=== PATIENT | female | born 1960 | race Caucasian/White ===

== ENCOUNTER 2021-04-13 08:05 | Outpatient (REF) | payer OTHER, SELFPAY ==
[2021-04-13 11:34] LABS: MANUAL DIFF FLAG NO
[2021-04-13 12:03] LABS: Basophils Percent Auto 0.7 % (0-2); Eosinophils Absolute Auto 0.2 X10*3/uL (0.0-0.4); Eosinophils Percent Auto 4.3 % (0-4); Hematocrit 40.8 % (37-47); Hemoglobin 12.9 g/dl (12.0-16.0); Imm Gran Abs Auto 0.01 X10*3/uL (0.00-0.03); Imm Gran Pct Auto 0.2 % (0.0-0.4); Lymphocytes Absolute Auto 1.7 X10*3/uL (1.2-4.9); Lymphocytes Percent Auto 39.1 % (20-40); Mean Corpuscular HGB Conc 31.6 g/dl (31.0-35.0); Mean Corpuscular Hemoglobin 30.1 pg (27.0-33.0); Mean Corpuscular Volume 95.1 fL (80-98); Mean Platelet Volume 9.9 fL (9.4-12.3); Monocytes Absolute Auto 0.4 X10*3/uL (0.1-1.2); Monocytes Percent Auto 9.5 % (2-11); Neutrophils Percent Auto 46.2 % (45-73); Platelet Count 193 X10*3/uL (160-400); Red Blood Count 4.29 X10*6/uL (4.20-5.50); Red Cell Distribution Width 12.8 % (11.0-16.0); White Blood Count 4.2 X10*3/uL (4.8-10.8)
[2021-04-13 12:21] LABS: Free T4 (Free Thyroxine) 0.81 ng/dL (0.71-1.85); Thyroid Stimulating Hormone 3.32 uIU/mL (0.32-4.0)
[2021-04-13 12:36] LABS: Alanine Aminotransferase 9 U/L (0-31); Albumin Level 3.7 g/dL (3.5-5.0); Alkaline Phosphatase 77 U/L (39-117); Anion Gap 10 (12-20); Aspartate Amino Transferase 14 U/L (5-31); Bilirubin Total 0.6 mg/dL (0.0-1.0); Blood Urea Nitrogen 23 mg/dL (9-16); Calcium 8.9 mg/dL (8.4-10.2); Carbon Dioxide 27 mmol/L (22-29); Chloride 109 mmol/L (96-108); Cholesterol 188 mg/dL; Estimated Glomerular Filt Rate > 60; Glucose Fasting 80 mg/dL (60-99); HDL Cholesterol 67 mg/dL; LDL Cholesterol Calculated 111 mg/dl; Potassium 4.4 mmol/L (3.3-5.1); Sodium 142 mmol/L (135-145); Total Protein 6.1 g/dL (6.5-8.0); Triglycerides 51 mg/dL
== END 2021-04-13 08:06 | disposition home or self-care (01) ==
LOC: HO.MANLDS 08:05
PROVIDERS: PCP Internal Medicine; Visit Provider Physician Assistant
DX: Z00.00 Encounter for general adult medical examination without abnormal findings (principal); Z13.6 Encounter for screening for cardiovascular disorders
CPT/HCPCS: 36415; 80053; 80061; 84439; 84443; 85025

== ENCOUNTER → 2025-05-30 07:45 | Outpatient (BNV) | payer MEDICARE, OTHER, SELFPAY | PROVIDERS: PCP Internal Medicine; Visit Provider Specialist | DX: M25.511 Pain in right shoulder (principal) | CPT/HCPCS: 73221 ==

== ENCOUNTER 2025-05-30 07:55 | Outpatient (REF) | payer MEDICARE, OTHER, SELFPAY ==
--- NOTE | ~2025-05-30 | MR_ITS ---
CLINICAL HISTORY: RIGHT SHOULDER INSTABILITY MR right shoulder without gadolinium Comparison: None provided Findings: No acute fractures. No pathologic bone lesions. AC joint degenerative/arthritic changes. Type II acromion. No joint effusion. The supraspinatus, infraspinatus, subscapularis, and teres minor tendons are intact. No tears of the long head of biceps tendon. No tears of the glenoid labrum. IMPRESSION: AC joint degenerative changes. No acute findings. This document has been electronically signed by: Rajendra Vásquez MD on 05/30/2025 08:55:20
--- OUTSIDE RECORDS SUMMARY | 2025-05-30 07:58 | XMS_ITS | Encounter Summary ---
Author Organization [facility] Address [facility] [employer] [address] [address] Phone Care Team Providers Care Brine Room Laborer Name Role Phone Darnell Cheney DO Primary Care Provider [phone] Darnell Cheney DO Unavailable Darnell Cheney DO Unavailable Mehul Keita MD Unavailable [phone] Camila Garcia MD Unavailable [phone] Darnell Cheney DO Unavailable Darnell Cheney Michel DO Unavailable Reason for Referral * MRI/CAT Scan - Closed Specialty Diagnoses / Procedures Referred By Johnathon [email or web address] Referred To Contact Radiology Diagnoses Other diseases of pharynx Procedures MRI Neck Darnell Cheney DO Phone: tel: fax: [email or web address] Referral ID Status Reason Start Date Expiration Date Visits Re quested Visits Authorized [id number] Closed 01/05/2021 02/06/2021 1 1 Encounter Details Date Type Department Care Team ([facility] st Contact Info) Description 12/16/2020 Transcribe Orders Virtual Department [address] [place] [address] Darnell Cheney DO [address] [facility] [place] [address] [phone] (work) [email or web address] Other diseases of pharynx (Primary Dx) Social History Tobacco Use Types Packs/Day Years Used Date Smoking Tobacco: Former Cigarettes Q uit: 2011 Smokeless Tobacco: Never Alcohol Use Standard Drinks/Week Comments Yes 0 (1 standard drink = 0.6 oz pur e alcohol) socially Comments No Sex and Gender Information Value Date Recorded Sex Assigned at Female 06/05/2020 2:08 PM EDT Legal Sex Female 12:47 PM EDT Gender Identity Female 06/05/2020 2:08 PM EDT Sexual Orientation Straight 06/05/2020 2: 08 PM EDT documented as of this encounter Plan of Treatment Not on file documented as of this encounter Results * MRI NECK WITH AND WITHOUT CONTRAST (01/05/2021 12:15 PM EST) Anatomical Region Laterality Modality Neck Magnetic Resonan ce 01/05/2021 12:0 0 PM EST Impressions 01/05/2021 12:29 PM EST No evidence of suspicious cervical masses. Borderline-minimally enlarged right submandibular lymph node is very likely reactive. Clinical follow-up recommended. Narrative 01/05/2021 12:29 PM EST HISTORY: Dysphagia, reflux esophagitis, former cigarette smoker, status-post tonsillectomy, status-post EGD, status-post Satish-en-Y gastrojejunostomy. COMPARISON: CT neck 12/04/2020. TECHNIQUE: MRI of neck performed with and without contrast on a 1.5 Alysa magnet. FINDINGS: Soft tissues: No evidence of parapharyngeal masses. Prevertebral soft tissues appear normal. Epiglottis appears normal. Soft tissues in the region of the glottis appear normal. Subglottic soft tissues appear normal. No evidence of abnormal enhancement. No evidence of focal fluid collections. Lymph nodes: Borderline-minimally enlarged right submandibular lymph node does not appear significant changed from 12/04/2020. No other evidence of measurable lymphadenopathy. Salivary: Parotid and submandibular glands appear normal. Thyroid: No abnormalities demonstrated. Bones: No suspicious marrow signal abnormalities. Base of brain, paranasal sinuses and mastoid air cells: Traces of fluid within bilateral mastoid air cells. Minimal mucosal thickening in bilateral ethmoid air cells. Procedure Note Benedict Elizabeth MD - 01/05/2021 HISTORY: Dysphagia, reflux esophagitis, former cigarette smoker,status-post tonsillectomy, status-post EGD, status-post [id number]. COMPARISON: CT neck 12/04/2020. TECHNIQUE: MRI of neck performed with and without contrast on a 1.5 Teslamagnet. FINDINGS: Soft tissues: No evidence of parapharyngeal masses. Prevertebral softtissues appear normal. Epiglottis appears normal. Soft tissues in theregion of the glottis appear normal. Subglottic soft tissues appearnormal. No evidence of abnormal enhancement. No evidence of focal fluidcollections. Lymph nodes: Borderline-minimally enlarged right submandibular lymph nodedoes not appear significant changed from 12/04/2020. No other evidence ofmeasurable lymphadenopathy. Salivary: Parotid and submandibular glands appear normal. Thyroid: No abnormalities demonstrated. Bones: No suspicious marrow signal abnormalities. Base of brain, paranasal sinuses and mastoid air cells: Traces of fluidwithin bilateral mastoid air cells. Minimal mucosal thickening inbilateral ethmoid air cells. IMPRESSION: No evidence of suspicious cervical masses. Borderline-minimally enlargedright submandibular lymph node is very likely reactive. Clinical follow-uprecommended. Darnell Cheney DO [facility] [place]ECK Final Result documented in this encounter Visit Diagnoses Diagnosis Other diseases of pharynx- Primary Other diseases of pharynx documented in this encounter Additional Health Concerns Infection Onset Date Last Indicated Resolved Time CoV-Risk 03/28/2022 03/28/2022 04/08/2022 1:24 AM EDT documented as of this encounter Care Teams Brine Room Laborer Relationship Specialty Start Date End Date Darnell Cheney DO [email or web address] PCP - General Internal Medicine 06/04/20 Darnell Cheney DO 06/04/20 Darnell Cheney DO Historical LMR Provider 08/24/17 Mehul Keita MD [address] [place] [address] Historical LMR Provider 08/24/17 Camila Garcia MD [address] [place] [address] [facility], [place] [address] Historical LMR Provider 08/24/17 Darnell Cheney DO [address] [place] [address] Insurance Assigned Provider 03/11/20 09/16/23 Darnell Cheney DO [address] [place] [address] Insurance Assigned Provider 02/10/24 documented as of this encounter Additional Source Comments The information contained in this document represents components of the legal health record. It is not the complete legal health record.[facility]
--- OUTSIDE RECORDS SUMMARY | 2025-05-30 07:58 | XMS_ITS | Data Portability ---
Author Organization [facility], Telehealth Patient Home Address [address] [place] [address] Assessment Encounter Date Assessment Date Assessment LastModified by Organization Details LastModified Time 07/02/2024 07/02/2024 Patient agreed and verbally consents to this audio and video Telehealth appt via a secure platform [email or web address] Not available 07/02/2024 14:14:12 03/04/2025 03/04/2025 [id number] [place] [id number] ([facility]) : MDM LOW MUST MEET 2 OF 3 ELEMENTS: PROBLEMS, DATA OR RISK ELEMENT 1: PROBLEMS ADDRESSED (LOW): 2 OR MORE SELF-LIMITED OR MINOR PROBLEMS OR 1 STABLE CHRONIC ILLNESS OR 1 ACUTE UNCOMPLICATED ILLNESS OR INJURY ELEMENT 2: DATA TO BE REVISED AND ANALYZED (LOW) MUST MEET 1 OF 2 CATEGORIES: CATEGORY 1. REVIEW OF PRIOR EXTERNAL NOTES/RESULTS, ORDERING OF TEST(S) CATEGORY 2. ASSESSMENT REQUIRING INDEPENDENT HISTORIAN(S) INCLUDE WHO THE HISTORIAN IS AND RELATION TO PT AND WHY PT IS UNABLE TO GIVE COMPLETE HISTORY ELEMENT 3: RISK (LOW) RISK OF COMPLICATIONS AND/OR MORBIDITY OR MORTALITY OF PATIENT MANAGEMENT PROVIDER MUST THOROUGHLY DOCUMENT ALL OF THE ELEMENTS COVERED [email or web address] Not available 03/04/2025 11:26:46 Plan of Treatment Reminders Order Date Submit Date Provider Last Modified By Organization Details Last Modified Time Details Appointments ANNUAL EXAM 2025 01:30P OSWALDO QUINTERO Not available Not available Not available Lab CMP, serum or plasma 2024 025 [facility], [address] [place] [address], [place], [address], 03/17/2025 13:39:48 CBC w/ auto diff 2024 025 [facility], [address] [facility], [place], [address], 03/17/2025 13:39:48 lipid panel, blood 2024 025 [facility], [address] [facility], [place], [address], 03/17/2025 13:39:48 iron + TIBC + ferritin, serum 2023 024 [facility], [place], [address], 01/15/2024 11:31:55 vitamin B12 + folate, serum or blood 2023 024 [facility], [place], [address], 01/15/2024 11:31:56 vitamin D, 25-hydrox y, total, serum 2023 024 [facility], [place], [address], 01/15/2024 11:31:56 TSH + free T4, serum 2023 024 [facility], [place], [address], 01/16/2024 14:01:05 thyroid peroxidas e (tpo) Ab, serum 2023 024 [facility], [place], [address], 01/15/2024 11:31:56 T3, free, serum or plasma 2023 024 [facility], [place], [address], 01/15/2024 11:31:55 ESR (erythroc yte sedimenta tion rate), blood 2023 024 [facility], [place], [address], 01/15/2024 11:31:55 C reactive protein, QN, serum or plasma 2023 024 [facility], [place], [address], 01/15/2024 11:31:56 PTH (parathyr oid hormone), intact + calcium, serum or plasma 2023 024 [facility], [place], [address], 01/16/2024 14:00:10 CBC w/ auto diff 2023 024 [facility], [place], [address], 01/16/2024 13:59:21 sjogren antibody panel (ssa, ssb, ro, la), serum 2023 024 [facility], [place], [address], 01/15/2024 11:31:56 SUAD (antinucl ear antibodie s) screen, serum 2023 024 [facility], [place], [address], 01/17/2024 15:01:52 Referral orthopedi c surgeon referral 2023 024 donovan Wiley MD, [address], [facility] [address], [place], [address], 01/23/2024 08:10:12 Procedures None recorded. Surgeries None recorded. Imaging MRI, brain, w/wo contrast - pt has a family history of glioblast ze, having acute onset constant headache in the frontal and temporal lobe areas with acute onset visual disturban ce, pain does not improve with OTC therapies , having floaters bilateral ly 2023 024 [email or web address] [facility], [address], [facility] [address], [place], [address], 07/09/2024 08:28:54 Medication Orders Bactrim DS 800 mg-160 mg tablet 2023 025 [id number], [address] [place], [place], [id number], 03/17/2025 13:35:22 Patient TargetsNo targets recorded. Patient InstructionsNo instructions recorded. Reason for Referral Orthopedic Surgeon Referral for Bilateral wrist pain bilateral wrist pain, hx of carpal tunnel, failed surgery on the left wrist Referring Physician: Amee Reaves, Internal Medicine, Encounter Date: 01/15/2024 Results Created Date Observation Date Name Description Value Unit Range Abnormal Flag Note LastModifiedBy Organization Detail LastModifiedTime 07/14/20 24 07/12/2024 MRI, brain , w/wo contr ast No observ ation record ed. [email or web address] [facility] [address] [facility] [address], [place], [address], 07/15/2024 12:02:31 09/16/20 24 09/16/2024 MAMMO , scree malorie, digit al, bilat eral No observ ation record ed. [email or web address] - Callback Orders Only [address] [place], [address], 09/16/2024 15:24:49 03/03/20 25 03/03/2025 XR, shoul opal, 2 or more view No observ ation record ed. [email or web address] [facility] [address] [place], [address], 03/04/2025 22:13:52 Result Notes None recorded. Problems Name Problem SNOMED Code Status Onset Date Resolution Date Notes Provider Name and Address Organization Details Recorded Time Anxiety 24042924 Active 2017 Not Available [facility] 1 12:59:04 Depressi ve disorder 92997218 Active 2017 Not Available [facility] 1 12:59:04 Chronic cough 67502686 Active 2017 Not Available [facility] 1 12:59:03 Gastroes ophageal reflux disease 579071221 Active 2017 Not Available [facility] 1 12:59:03 Morbid obesity 552234827 Active 2017 Not Available [facility] 1 12:59:03 Hypergly cemia 53470896 Active 2017 Not Available [facility] 1 12:59:04 Migraine 81983348 Active 2017 Not Available [facility] 1 12:59:03 Polycyst ic ovaries Active 2017 Not Available [facility] 1 12:59:03 Polyp of colon 57356543 Active 2017 Not Available [facility] 1 12:59:04 Pneumoni a 327680197 Active 2017 Not Available [facility] 1 12:59:04 Obstruct liset sleep apnea syndrome 00896457 Completed 201701/22/2021 OSWALDO HENRIQUEZ [address] [place] [address], [phone] 1 09:36:22 History of endometr ial ablation 53204289634 9107 Active 2017 Not Available [facility] 1 12:59:03 Menopaus e Active 2017 Not Available [facility] 1 12:59:03 Hemorrho ids 59277940 Active 2017 Not Available [facility] 1 12:59:03 Eczema 02617974 Active 2017 Not Available [facility] 1 12:59:04 Rotator cuff impingem ent syndrome 221854128 Active 2019 Not Available [facility] 1 12:59:04 Plantar fasciiti s of left foot 36074448098 757999 Active 2021 OSWALDO HENRIQUEZ [address] [place], [address], [facility] 2 16:57:59 Acute pharyngi tis 624169529 Active 2022 OSWALDO HENRIQUEZ [address] [place], [address], [facility] 3 12:32:18 COVID-19 711281984 Active 2022 OSWALDO HENRIQUEZ [address] [place], [address], [facility] 3 10:17:25 Pain of right wrist 72757824980 9100 Active 2023 OSWALDO HENRIQUEZ [address] [place], [address], [facility] 4 11:25:16 Bilatera l wrist pain 84961527027 976176 Active 2023 OSWALDO HENRIQUEZ [address] [place], [address], [facility] 4 11:25:49 Loss of hair 289688539 Active 2023 OSWALDO HENRIQUEZ [address] [place], [address], [facility] 4 11:27:36 Alopecia areata 60136323 Active 2023 OSWALDO HENRIQUEZ [address] [place], [address], [facility] 4 15:40:32 Visual disturba nce 90467095 Active 2023 OSWALDO HENRIQUEZ [address] [place], [address], [facility] 4 14:11:13 Visual disturba nce 58269190 Active 2023 OSWALDO HENRIQUEZ [address] [place], [address], [facility] Internal [facility] 4 14:12:02 Abscess 256224064 Active 2023 OSWALDO HENRIQUEZ [address] [place] [address], [address], [facility] Internal [facility] 4 14:14:36 Candidia sis of vagina 00748619 Active 2024 OSWALDO HENRIQUEZ [address] [place] [address], [address], [facility] Internal [facility] 5 10:56:57 Pain of right shoulder joint 42867114734 206058 Active 2024 Darnell Cheney DO [address] [place] [address], [address], [facility] 5 18:48:58 Tendinit is of right rotator cuff 23368321517 335345 Active 2024 Darnell Cheney DO [address] [place] [address], [address], [facility] 5 11:25:20 Instabil ity of right shoulder joint 350342078 Active 2024 Darnell Cheney DO [address] [place] [address], [address], [facility] 5 21:02:47 Problem Notes None recorded. Procedures Surgical History Date Name Laterality Status Provider Name and Address Organization Details Recorded Time 025 Corticosteroid Injection completed Darnell Cheney DO [address] [place] [address], [address], [facility] 03/04/2025 11:24:58 019 Corticosteroid Injection completed Darnell Cheney DO [address] [place] [address], [address], [facility] 09/03/2019 14:35:23 014 Gastric Bypass completed Heena Cheney [facility] 07/31/2019 09:42:28 014 Hernia Repair completed [facility] 07/31/2019 09:42:28 992 Tubal Ligation completed [facility] 07/31/2019 09:42:28 Colonoscopy completed Heena [facility] 07/31/2019 09:42:28 Other completed Heena escalera [facility] 07/31/2019 09:42:28 Imaging Results None recorded. Procedure Notes None recorded. Medical Equipment None Reported. Allergies No known drug allergies Medications Name Sig Start Date Stop Date Status Note LastModified by Organization Details LastModified Time amoxicillin 500 mg capsule TAKE ONE CAPSULE BY MOUTH EVERY 8 HOURS FOR 7 DAYS 01/14 completed Not Available Not Available Not Available prednisone 10 mg tablet 4 tabs x 2 days3 tabs x 2 days2 tabs x 2 days1 tabs x 2 days 01/10 completed Not Available Not Available Not Available trazodone 50 mg tablet TAKE 1 TABLET AT BEDTIME active Not Available Not Available No t Available azithromyci n 250 mg tablet TAKE 2 TABLETS (500 MG) BY ORAL ROUTE ONCE DAILY FOR 1 DAY THEN 1 TABLET (250 MG) BY ORAL ROUTE ONCE DAILY FOR 4 DAYS 01/14 completed Not Available Not Available Not Available ibuprofen 800 mg tablet Take 1 tablet 3 times a day by oral route for 10 days. active prn Not Available Not Available No t Available fluconazole 150 mg tablet TAKE 1 TABLET BY MOUTH EVERY DAY FOR 3 DAYS DIRECTED 03/17 completed Not Available Not Available Not Available valacyclovi r 1 gram tablet TAKE 1 TABLET BY MOUTH THREE TIMES DAILY FOR 7 DAYS 03/17 completed Not Available Not Available Not Available Anucort-HC 25 mg suppository Insert 1 supposito ry twice a day by rectal route for 14 days. 07/31 completed Not Available Not Available Not Available meclizine 12.5 mg tablet TAKE 1 TABLET BY MOUTH THREE TIMES DAILY FOR 10 DAYS 10/11 completed Not Available Not Available Not Available lidocaine HCl 2 % mucosal jelly 07/31 completed Not Available Not Available Not Available sulfamethox azole 800 mg-trimetho prim 160 mg tablet TAKE 1 TABLET BY MOUTH EVERY 12 HOURS FOR 7 DAYS DIRECTED 03/17 completed Not Available Not Available Not Available omeprazole 40 mg capsule,del ayed release TAKE 1 CAPSULE DAILY active Not Available Not Available No t Available meloxicam 7.5 mg tablet TAKE 1 TABLET BY MOUTH TWICE DAILY 01/22 completed Not Available Not Available Not Available hydrocortis one 2.5 % topical cream with perineal applicator APPLY A THIN LAYER TO THE AFFECTED AREA(S) BY TOPICAL ROUTE 2-4 TIMESDAIL Y 07/31 completed Not Available Not Available Not Available famotidine 20 mg tablet TAKE 1 TABLET DAILY 11/25 completed Not Available Not Available Not Available paroxetine 20 mg tablet TAKE 1 TABLET DAILY active Not Available Not Available No t Available erythromyci n 5 mg/gram (0.5 %) eye ointment APPLY 1 APPLICATI ON TO THE AFFECTED EYE FOUR TIMES DAILY FOR 7 DAYS 01/14 completed Not Available Not Available Not Available triamcinolo ne acetonide 0.1 % topical ointment active Not Available Not Available Not Available omeprazole 20 mg capsule,del ayed release TK 1 C PO QD 30 MIN B PEYTON 11/25 completed Not Available Not Available Not Available diclofenac sodium 75 mg tablet,dot yed release TAKE 1 TABLET BY MOUTH TWICE DAILY WITH MEALS 01/14 completed Not Available Not Available Not Available ranitidine 150 mg capsule TAKE 1 CAPSULE DAILY 05/20 completed Not Available Not Available Not Available lorazepam 1 mg tablet 07/17 completed Not Available Not Available Not Available ondansetron 4 mg disintegrat ing tablet 07/17 completed Not Available Not Available Not Available betamethaso ne dipropionat e 0.05 % lotion APPLY TO THE AFFECTED AREAS ON THE SCALP EVERY OTHER DAY FOR FLARES AND ITCHING. active Not Available Not Available No t Available doxycycline hyclate 100 mg tablet TAKE 1 TABLET BY MOUTH TWICE DAILY WITH FOOD 03/17 completed Not Available Not Available Not Available amoxicillin 875 mg-potassiu m clavulanate 125 mg tablet TAKE 1 TABLET BY MOUTH EVERY 12 HOURS FOR 7 DAYS 10/11 completed Not Available Not Available Not Available oxycodone 5 mg tablet TAKE 1 TABLET BY MOUTH EVERY 6 HOURS NEEDED FOR PAIN 03/17 completed Not Available Not Available Not Available pregabalin 75 mg capsule Take 1 capsule twice a day by oral route for 30 days. 05/20 completed Not Available Not Available Not Available chlorhexidi ne gluconate 0.12 % mouthwash 07/17 completed Not Available Not Available Not Available Pepcid 1 QD OTC 01/10 completed Not Available Not Available Not Available iron active OTC Not Available Not Availa ble Not Available Vitamin B12 qd active Not Available Not A vailable Not Available Afluria Qd (36 mos up)(PF)60 mcg (15 mcg x4)/0.5 mL IM syringe ADM 0.5ML IM UTD 11/25 completed Not Available Not Available Not Available Flowflex COVID-19 Antigen Home Test kit 01/14 completed Not Available Not Available Not Available Paxlovid 300 mg (150 mg x 2)-100 mg tablets in a dose pack TAKE 3 TABLETS TWICE A DAY BY ORAL ROUTE FOR 5 DAYS 01/14 completed Not Available Not Available Not Available Vitals Date Recorded Body height Heart rate Oxygen saturation Oxygen saturation in Arterial blood by Pulse oximetry Systolic And Diastolic Provider Name and Address Organization Details Last Updated DateTime 4 165.1 cm 58 /min 98 % 98 % 110/60 mm[Hg] Vandana Mustafa [facility] 4 11:17:57 Date Recorded Body height Body mass index (BMI) Body weight Heart rate Respiratory rate Oxygen saturation Oxygen saturation in Arterial blood by Pulse oximetry Systolic And Diastolic Provider Name and Address Organization Details Last Updated DateTime 4 165.1 cm 34.8 kg/m2 31176.8 1 g 58 /min 16 /min 98 % 98 % 138/76 mm[Hg] Jonathan Meneses [facility] 4 09:58:52 Date Recorded Body height Body mass index (BMI) Body weight Heart rate Oxygen saturation Oxygen saturation in Arterial blood by Pulse oximetry Systolic And Diastolic Provider Name and Address Organization Details Last Updated DateTime 5 165.1 cm 32.6 kg/m2 99527.1 g 60 /min 97 % 97 % 110/60 mm[Hg] Vandana Mustafa MA [facility] 5 13:33:44 Social History Question Answer Notes LastModified by Organizat ion Details LastModified Time Tobacco Smoking Status Current Every Day Smoker Vandana theodore [facility] 03/17/2025 13:31:09 What Was The Date Of Your Most Recent Tobacco Screening? 03/17/2025 [email or web address] Information not available 03/17/2025 Sex: Unknown Functional Status Question Answer Note LastModified by Organization D etails LastModified Time Do you or have you ever used any other forms of tobacco or nicotine? No [email or web address] Information not available 01/15/2024 Mental Status None recorded. Family History Relationship Description Onset Age of this Age Resolved Age Notes LastModified by Organization Details LastModified Time Son Harmful pattern of use of alcohol 22 [email or web address] Not available 2018 09:42:56 Son Harmful pattern of use of alcohol 20 [email or web address] Not available 2018 09:42:56 Son Substance abuse 16 [email or web address] Not available 2018 09:42:56 Son Substance abuse 16 [email or web address] Not available 2018 09:42:56 Mother Hypertensive disorder 80 [email or web address] Not available 2018 09:42:56 Mother Arthritis 75 [email or web address] Not available 07/31/2019 09:42:56 Maternal Grandfather Chronic obstructive pulmonary disease 75 [email or web address] Not available 2018 09:42:56 Sister Migraine 30 [email or web address] Not available 0 07/31/2019 09:42:56 Sister Disorder of thyroid gland [email or web address] Not available 2018 09:42:56 Medical History Condition Response Coronary Artery Disease N Other N Gout N Kidney Stones N Blood Diseases N Breast Cancer N Blood Transfusion N Depression N COPD N Lung Disease N Defects or Inherited Disease N Anxiety Disorder N Muscle, Joint, or Bone Problems N Obesity N Vision or Eye Problems N Arthritis N Polyps N Infertility N Mental Disorder N Cancer N Varicosities N Stroke N Endometriosis N Bladder or Kidney Problems N High Cholesterol N Liver Disease N Headaches N Fibromyalgia N Kidney Disease N Allergies/Hayfever N Heart Problems N Hospitalizations N Thyroid Problems N GI Problems N Skin Problems N Eating Disorder N Anemia N MRSA exposure N Constipation N Mental Illness N Ovarian Cancer N Diabetes N Seizures/Epilepsy N Tuberculosis N Congestive Heart Failure (CHF) N Eczema N Diverticulitis N Abuse/Domestic Violence N Asthma N Reflux/GERD N Hepatitis N Heart Disease N Pulmonary Embolism N Hypertension N Chicken Pox N Autism Spectrum Disorder (ASD) N Osteoporosis N Gynecological History Statement/Question Response Abnormal Pap Y None HPV Vaccine N Current Control Method None Age at Menarche 12 Age at First Child 1988 N Obstetrics History GPAL:G 0 P 0 0 0 0 Immunizations Vaccine Type Date Status Note Provider Nam e and Address Organization Details Recorded Time COVID-19 vaccine, vector-nr, rS-Ad26, PF, 0.5 mL 01/07/2021 completed Not Available [facility] 2 20:00:42 COVID-19 vaccine, vector-nr, rS-Ad26, PF, 0.5 mL 12/17/2020 completed Not Available [facility] 2 20:00:42 Past Encounters Encounter ID Performer Location Encounter Start Date Encounter Closed Date Diagnosis/Indication Diagnosis SNOMED-CT Code Diagnosis ICD10 Code Diagnosis Note [id number] Darnell Cheney [facility] [address] [place] [address] [place] [address] 07/17/2018 13:48:54 07/17/2018 16:27:57 Hemorrhoids 65729787 K64.9 [id number] Darnell Cheney [facility] Internal [address], [place] [address] 07/31/2019 09:39:04 07/31/2019 10:17:36 Reduced libido 1223338 R68.82 will discuss with obgyn Snoring 42392717 R06.83 will discuss with dentist Pain of sh oulder region 10058181 M25.519 IMPINGEMEN T SYNDROME Impingemen t syndrome of shoulder region 894796915 M75.42 [id number] Darnell Cheney [facility] [address] [place] [address], [place] [address] 08/07/2019 13:40:56 08/07/2019 14:24:23 Full thickness rotator cuff tear 654394758 M75.122 severe pain and debility for the last 2 mo now affecting her ADL's severity of pain precludes any ability to do Phys Therpay [id number] Darnell Cheney [facility] Internal [address], [place] [address] 09/03/2019 14:09:12 09/03/2019 14:48:44 Bursitis of left shoulder 8240014910 32326 M75.52 cortisone injn [facility] [id number] Darnell Cheney [facility] Medicine [address] [facility] [facility] [place] [address] 05/20/2020 11:57:37 05/20/2020 12:30:15 Sensation of foreign body in throat 8111148949 47832 R09.89 will send to gastro specialist to work up further was not able to appreciate that much on exam of the throat Acid reflux 114541794 K2 1.9 long hx of acid reflux, could be famotidine does not work as well for her as ranitidine did [id number] Darnell Cheney [facility] [address] [facility] [address] 10/21/2020 08:56:05 10/21/2020 15:46:23 Gastro-esophageal reflux disease with esophagitis 603845897 K21.00 if unhelpful we will have to set her up with ENT for a laryngosoc py but this is sounding like laryngeal reflux Rotator cu ff impingement syndrome 079685764 M75.102 [id number] Darnell Cheney [facility] Internal [facility] [address] [facility] [employer] TherapydiaCOLUMB[facility] UNIV[facility] [place] [address] 11/25/2020 13:22:48 11/25/2020 14:04:48 Dysphonia 32017079 R49.9 given the persistanc e of her symptoms we must explore further i will have ENT and ct scan of neck ordered [id number] Darnell Cheney [facility] Medicine [address] [facility] [address] 01/22/2021 09:11:05 01/22/2021 09:59:16 Screening colonoscopy 933640715 Z12.11 sent in referral Active or passive immunization 369831609 Z23 sent in vaccine info for her Gynecologi c examination 35907901 Z01.419 getting repeat PAP done Adult [facility] th examination 109364056 Z00.00 BP excellent today Screening for cardiovascular system disease 153116750 Z13.6 [place]w [id number] Darnell Cheney [facility] Medicine [address] [facility],[place] [address] 02/24/2021 16:06:51 02/24/2021 16:38:31 Benign paroxysmal positional vertigo 085974014 H81.12 will send to PT and [place] meclizine PRN [id number] Darnell Cheney [facility] Medicine [address] [facility] [address],[place] [address] 05/31/2021 09:08:32 05/31/2021 12:16:02 Acute sinusitis 11608880 J01.90 will fu with abx for 7 dayswill call if no improvemen t [id number] Darnell Cheney [facility] Medicine [address] [facility] [address],[place] [address] 10/11/2021 14:40:00 10/11/2021 16:05:48 Contact dermatitis 49505335 L23.3 will start on combinatio n pred taper, pepcid and benadryl for allergic rashunknow n causing agent [id number] Darnell Cheney [facility] Medicine [address] [facility] [address],[place] [address] 01/10/2022 13:20:34 01/11/2022 11:06:06 Plantar fasciitis of left foot 6244321116 2188437 M72.2 will start on anti-infla mmatorygiv en exercises for anti-infla mmatory [id number] Darnell Cheney [facility] Internal [facility] [address] [facility] [address],[place] [address] 09/20/2022 08:30:25 09/20/2022 16:51:14 Anxiety 33508235 F41.1 stable Depressive disorder 3548 9007 F32.9 stable Gastroesop hageal reflux disease 031490580 K21.9 stable Plantar fa sciitis of left foot 9181076561 0419056 M72.2 will send back to podiatry [id number] Darnell Cheney [facility] Medicine [address] [facility] [address],[place] [address] 01/15/2024 11:11:59 01/15/2024 14:03:15 Bilateral wrist pain [id number] M25.531 agreed to ortho referral Loss of hair [id number] L 63.0 will set up with lab work determine cause for the hair loss [id number] Darnell Cheney [facility] Internal Medicine [address] [facility] [address] [address] 03/01/2024 09:52:49 03/01/2024 14:02:02 Active or passive immunization [id number] Z23 sent in vaccine info for her Adult heal th examination [id number] Z00.00 BP excellent today [id number] Darnell Cheney [facility] Internal Medicine [address] [facility] [address],[place] [address] 07/02/2024 10:55:40 07/02/2024 16:10:25 Visual disturbance [id number] H53.003 agreed to MRI given new presentati on and fam hx of brain cancer Abscess [id number] L02.21 1 start bactrim [id number] Darnell Cheney [facility] Internal Medicine [address] [facility] [address],[place] [address] 03/04/2025 09:54:16 03/04/2025 12:04:00 Tendinitis of right rotator cuff [id number] M75.81 pepito inj well allison [id number] [facility] [address] [facility] [address],[place] [address] 03/17/2025 13:24:53 03/18/2025 08:50:27 General examination of patient [id number] Z00.00 BP excellent today Health Concerns Section Related Observation LastModified by Organization Detai ls LastModified Time None Recorded Concern Status LastModified by Organization Details LastModified Time None Recorded Advance Directives Directive None Recorded Payers Insurance Date Sequence Insurance Name Policy Number Policy Esquivel Covered Member ID Esquivel Member ID Guarantor Name 05/14/2025 1 MEDICARE B-[place]: [employer] Thelma Beaver [id number] Thelma Beaver 05/14/2025 1 [facility] Thelma Beaver [id number] Thelma Beaver 05/14/2025 2 [facility] [id number] Thelma Beaver [id number] Thelma Beaver 03/04/2025 1 [facility] (POS) Thelma Beaver [id number] Thelma Beaver 03/04/2025 1 [facility] [id number] Thelma Beaver [id number] Thelma Beaver Notes Date Note Type Note Provider Name a nd Address Organization Details Recorded Time 4 text/html ROS as noted in the HPI c/o wrist pain, hair loss bilateral wrist paincan't put pressure of her wrists, ie when she is doing weights at the gym or using them to push off something they are very uncomfortableh/x of carpal tunnel, with surgeries, didn't take on the left side, may need additional surgery, will see if they just want to do an injection pt agrees to this planwill send referral losing hair, noted by patient and her hair dressesshe does have thick hair but noted loss of hair in patches of her head agreed to lab workcould be a def in something vs autoimmune (though less likely)will f/u pt after his lab work OSWALDO HENRIQUEZ [address] [place] [address], [phone], [facility] 01/15/2024 11:37:04 4 text/html Annual WellnessReported by PatientSocial/Behavio ral HistoryFor diet and nutrition, patient reportshealthy diet,discussed vitamin and supplement use,discussed portion control,discussed maintaining calcium balance, anddiscussed diet improvement. For fracture risk, patient reportsno history of fractures,no recent explained fracture,no sudden unexplained fractures, andno previous musculoskeletal injuries. For physical activity, patient reportsexercises on a regular basis,recent increase in physical activity, andgood physical condition. For additional lifestyle factors, patient reportsno tobacco useanddrinks alcohol (mild-moderate).Menta l Status:For depression risk, patient reportsnever feels sad, empty, or tearful,no loss of interest in activities,no significant changes in weight,no sleep disturbances or insomnia,no agitation,no loss of energy,no feelings of worthlessness or guilt,no thoughts of suicide,no history of depression, andno history of mood disorders.Functional AbilityFor hearing, patient reportsno loss of hearing. For vision, patient reportsno vision problems. the patient reports that she had an injection in her right armno changeand had carpal tunnel surgery, done by kim CHENEY March 15the patient is doing well, no signs of infection seeing derm in june, on cancellation list OSWALDO HENRIQUEZ [address] [place], [address], [facility] Internal Medicine 03/01/2024 10:25:34 4 text/html ROS as noted in the HPI c/o new onset headaches, does not usually get them The patient is participating in this appointment via telemedicine communication with a phone call/video calling service ([place])The patient consents to use of these platforms in place of an in-person appointment due to either sick symptoms the patient is presenting with or current office closure due to COVID exposure in order to keep our office staff and patients safe the patient reports that she has had a constant dull headache in the frontal lobethe patient reports that there a no triggers at this time the patient reports that her father had a history of glioblastomanot a typical headache suffer, does not get headaches or migraines not alleviated by APAP or advil or other OTC meds for headaches the patient does not get relief from anythingno photophobia, no phonophobia did make an appt with her eye doctor, soonest available is December, is on the cancellation listdo not want her waiting that long in case it is something more serious the patient is getting floaters in both eyes, more on the left side, floaters look like black specks and fuzz per patientno sensation of curtain over the eye appearanceno numbness or tingling no seasonal allergies, no symptomsthe patient has been having weight loss which is intended does not have seasonal allergies, no symptoms suggestive of allergies like rhinorrhea, congestion, sneezing or itching breathing is stableno chest painno feversno chills denies tinnitus or hearing changes OSWALDO HENRIQUEZ [address] [facility], [place], [address], [facility] Internal Medicine 07/02/2024 14:19:33 5 text/html ROS as noted in the HPI HER E for pepito inj right shoulder has been severely sore and uncomfortable with any movement xr taken is negative Darnell Maranda Bigda, DO [address] [place], [address], [facility] Internal Medicine 03/04/2025 11:28:17 5 text/html Annual WellnessReported by PatientSocial/Behavio ral HistoryFor diet and nutrition, patient reportshealthy diet,discussed vitamin and supplement use,discussed portion control,discussed maintaining calcium balance, anddiscussed diet improvement. For fracture risk, patient reportsno history of fractures,no recent explained fracture,no sudden unexplained fractures, andno previous musculoskeletal injuries. For physical activity, patient reportsexercises on a regular basis,recent increase in physical activity, andgood physical condition. For additional lifestyle factors, patient reportsno tobacco useanddrinks alcohol (mild-moderate).Menta l Status:For depression risk, patient reportsnever feels sad, empty, or tearful,no loss of interest in activities,no significant changes in weight,no sleep disturbances or insomnia,no agitation,no loss of energy,no feelings of worthlessness or guilt,no thoughts of suicide,no history of depression, andno history of mood disorders.Functional AbilityFor hearing, patient reportsno loss of hearing. For vision, patient reportsno vision problems.ROS as noted in the HPI wears glasses for reading OSWALDO HENRIQUEZ [address] [facility], [place], [address], [facility] Internal Medicine 03/17/2025 13:41:35 OBGyn Episode No OBEpisode recorded.
== END 2025-05-30 07:56 | disposition home or self-care (01) ==
LOC: HO.MRI 07:55
PROVIDERS: PCP Internal Medicine; Visit Provider Internal Medicine
DX: M25.311 Other instability, right shoulder (principal)
CPT/HCPCS: 73221

== ENCOUNTER 2025-07-28 07:53 | Outpatient (AMB) | payer MEDICARE, OTHER, SELFPAY ==
--- OUTSIDE RECORDS SUMMARY | 2003-09-04 01:00 | XMS_ITS | Encounter Summary ---
Author Organization [facility] Address [address] [employer] [facility] [address] [place] [address] Phone Care Team Providers Care Ingot Stripper Name Role Phone Unavailable Primary Care Provider Unavailabl e Encounter Details Date Type Department Care Team (Late st Contact Info) Description 09/04/2003 Hospital Encounter [facility],Outside Imaging [address] [place] [address] System, Provider Not In, [facility] [address] [address] Social History Tobacco Use Types Packs/Day Years Used Date Smoking Tobacco: Former Cigarettes Q uit: 2012 Smokeless Tobacco: Never Alcohol Use Standard Drinks/Week Comments Yes 0 (1 standard drink = 0.6 oz pur e alcohol) socially Education Answer Date Recorded Are you interested in more education? Not on david e 03/03/2023 Are you concerned about learning? Not on file 03/03/2023 No 03/03/2023 No 03/03/2023 Digital Access Answer Date Recorded No 04/04/2023 No 04/04/2023 Reliable internet access at home? Not on file 04/04/2023 Device with a working camera? Not on file Comments No Sex and Gender Information Value Date Recorded Sex Assigned at Female 06/05/2020 2:08 PM EDT Legal Sex Female 12:47 PM EDT Gender Identity Female 06/05/2020 2:08 PM EDT Sexual Orientation Straight 06/05/2020 2: 08 PM EDT documented as of this encounter Functional Status * Calculated C-SSRS Risk Score (Lifetime/Recent) Answer Date of Assessment Author No Risk Indicated 03/28/2022 11:42 AM EDT Medhat De La Rosa, HANNAH * [place] Suicide Severity Rating Scale (Screener/Recent Self-Report) Question Answer Date of Assessment Author 1. Wish to be (Past 1 Month) No 03/28/2022 11:42 AM EDT Heather Flores, HANNAH 2. Non-Specific Active Suicidal Thoughts (Past 1 Month) No 03/28/2022 11:42 AM EDT Heather Flores, HANNAH 6. Suicidal Behavior (Lifetime) No 03/28/2022 11:42 AM EDT Heather Flores, HANNAH documented as of this encounter Plan of Treatment Upcoming Encounters Date Type Department Care Team (Late st Contact Info) Description 06/18/2025 Procedure Pass [address] [address] 02/03/2026 11:00 AM EDT Appointment [address] [address] Darnell Cheney, [address] [facility] [place] [address] [place] [address] [email or web address] 02/13/2026 8:00 AM EDT Telemedicine [facility] [place] Department of Neurology [address] [place] [address], 8th Floor, [address] [place] [address] Kirk Catalan MD [address] [place] [address] [address] [place] [address] [email or web address] documented as of this encounter Procedures Procedure Name Priority Date/Time Associated Diagnosis Comments XR CHEST OUTSIDE (NO INTERPRETATION) Routine 09/04/2003 12:00 AM EST documented in this encounter Results * XR Chest Outside (No Interpretation) (09/04/2003 12:00 AM EST) Narrative SYSTEMGENERATED, DOCUMENTATION - 11/07/2017 10:24 AM EST This study is for PACS storage only and not for interpretation. us Provider Not In System PhD IMG OUTSIDE IMAGING W /OUT INTERPRETATION Final Result documented in this encounter Visit Diagnoses Not on filedocumented in this encounter Additional Health Concerns Infection Onset Date Last Indicated Resolved Time CoV-Risk 03/28/2022 03/28/2022 04/08/2022 1:24 AM EDT documented as of this encounter Additional Source Comments The information contained in this document represents components of the legal health record. It is not the complete legal health record.[facility]
--- OUTSIDE RECORDS SUMMARY | 2012-05-15 | XMS_ITS | Encounter Summary ---
Author Organization [facility] Address [address] [employer] [facility] [address] [place] [address] Phone Care Team Providers Care Mobile Marketing Specialist Name Role Phone Unavailable Primary Care Provider Unavailabl e Encounter Details Date Type Department Care Team (Late st Contact Info) Description 05/15/2012 Hospital Encounter [facility],Outside Imaging [address] [place], [place] [id number] System, Provider Not In, [facility] [address] [address] Social History Tobacco Use Types Packs/Day Years [...] EDT Medhat De La Rosa, HANNAH * [place] Suicide Severity Rating Scale (Screener/Recent Self-Report) Question [...] st Contact Info) Description 06/18/2025 Procedure Pass [address] [address] 02/03/2026 11:00 AM EDT Appointment [address] [address] Darnell Cheney, [address] [facility] [place] [address] [place] [address] [email or web address] 02/13/2026 8:00 AM EDT Telemedicine [facility] [place] Department of Neurology [address] [place] [address], 8th Floor, [address] [place] [address] Kirk Catalan MD [address] [place] [phone] [email or web address] documented as of this encounter Procedures Procedure Name Priority Date/Time Associated Diagnosis Comments BI MAMMOGRAM OUTSIDE (NO INTERPRETATION) Routine 05/15/2012 12:00 AM EDT documented in this encounter Results * Mammogram Outside (No Interpretation) (05/15/2012 12:00 AM EDT) Narrative SYSTEMGENERATED, DOCUMENTATION - 11/07/2017 10:22 AM EST This study is for PACS [...] It is not the complete legal health record.[facility]
--- OUTSIDE RECORDS SUMMARY | 2014-04-17 | XMS_ITS | Encounter Summary ---
Author Organization [facility] Address [address] [employer] [facility] [address] [place] [address] Phone Care Team Providers Care Education Teacher Name Role Phone Unavailable Primary Care Provider Unavailabl e Encounter Details Date Type Department Care Team (Late st Contact Info) Description 04/17/2014 Hospital Encounter [facility],Outside Imaging [address] [place], [place] [phone] System, Provider Not In, [facility] [address] [address] Social History Tobacco Use Types Packs/Day Years [...] EDT Medhat De La Rosa, HANNAH * [place] Suicide Severity Rating Scale (Screener/Recent Self-Report) Question [...] st Contact Info) Description 06/18/2025 Procedure Pass [address] [address] 02/03/2026 11:00 AM EDT Appointment [address] [address] Darnell Cheney, [address] [facility] [place] [address] [place] [address] [email or web address] 02/13/2026 8:00 AM EDT Telemedicine [facility] [place] Department of Neurology [address] [place] [address], 8th Floor, [address] [place] [address] Kirk Catalan MD [address] [place] [phone] [email or web address] documented as of this encounter Procedures Procedure Name Priority Date/Time Associated Diagnosis Comments BI MAMMOGRAM OUTSIDE (NO INTERPRETATION) Routine 04/17/2014 12:00 AM EDT documented in this encounter Results * Mammogram Outside (No Interpretation) (04/17/2014 12:00 AM EDT) Narrative SYSTEMGENERATED, DOCUMENTATION - 11/07/2017 10:21 AM EST This study is for PACS [...] It is not the complete legal health record.[facility]
--- OUTSIDE RECORDS SUMMARY | 2015-08-20 | XMS_ITS | Encounter Summary ---
Author Organization [facility] Address [address] [facility] [address] [place] [address] Phone Care Team Providers Care Program Advisor Name Role Phone Unavailable Primary Care Provider Unavailabl e Encounter Details Date Type Department Care Team (Late st Contact Info) Description 08/20/2015 Hospital Encounter [facility],Outside Imaging [address] [place], [place] [phone] System, Provider Not In, [facility] [address] [place] [address] [address] Social History Tobacco Use Types Packs/Day Years [...] EDT Medhat De La Rosa, HANNAH * [place] Suicide Severity Rating Scale (Screener/Recent Self-Report) Question [...] st Contact Info) Description 06/18/2025 Procedure Pass [address] [address] 02/03/2026 11:00 AM EDT Appointment [address] [address] Darnell Cheney, [address] [facility] [place] [address] [email or web address] 02/13/2026 8:00 AM EDT Telemedicine [facility] Department of Neurology [address] [place] [address], 8th Floor, [address] [place] [address] Kirk Catalan MD [address] [place] [phone] [email or web address] documented as of this encounter Procedures Procedure Name Priority Date/Time Associated Diagnosis Comments BI MAMMOGRAM OUTSIDE (NO INTERPRETATION) Routine 08/20/2015 12:00 AM EDT documented in this encounter Results * Mammogram Outside (No Interpretation) (08/20/2015 12:00 AM EDT) Narrative SYSTEMGENERATED, DOCUMENTATION - 11/07/2017 10:20 AM EST This study is for PACS [...] It is not the complete legal health record.[facility]
--- OUTSIDE RECORDS SUMMARY | 2025-07-28 07:55 | XMS_ITS | Encounter Summary ---
Author Organization [facility] Address Formerly [facility] [employer] [address] [address] Phone Care Team Providers Care Track Service Person Name Role Phone Darnell Cheney DO Primary Care Provider [phone] Darnell Cheney DO Unavailable Darnell Cheney DO Unavailable Mehul Keita MD Unavailable Camila Garcia MD Unavailable [phone] Darnell Cheney DO Unavailable Darnell Cheney Michel DO Unavailable Reason for Referral * MRI/CAT Scan - Closed Specialty Diagnoses / Procedures Referred By Johnathon mckeon Referred To Contact Radiology Diagnoses Other diseases of pharynx Procedures MRI Neck Darnell Cheney DO Phone: tel: fax: mailto:[email or web address] Referral ID Status Reason Start Date Expiration Date Visits Re quested Visits Authorized [id number] Closed 01/05/2021 02/06/2021 1 1 Encounter Details Date Type Department Care Team ([facility] st Contact Info) Description 12/16/2020 Transcribe Orders Virtual Department [address] [place] [address] Darnell Cheney DO [address] [facility] [address] [place], [place] [id number] [email or web address] Other diseases of pharynx (Primary Dx) Social [...] st Contact Info) Description 06/18/2025 Procedure Pass [address] [address] 02/03/2026 11:00 AM EDT Appointment [address] [address] Darnell Cheney DO [address] [facility] [place] [address] [email or web address] 02/13/2026 8:00 AM EDT Telemedicine [facility] Department of Neurology [address] [place] [address], 8th Floor, [address] [place] [address] Kirk Catalan MD [address] [place], [place] [address] [place] [address] [email or web address] documented as of this encounter Results * [...] former cigarette smoker,status-post tonsillectomy, status-post EGD, status-post Rdbk-fl-Qrjmopxftmawswyswu. COMPARISON: CT neck 12/04/2020. TECHNIQUE: MRI of [...] node is very likely reactive. Clinical follow-uprecommended. us Darnell Cheney DO IMG MR HEAD/NECK Final Result documented in this encounter Visit Diagnoses Diagnosis Other diseases of pharynx- Primary Other diseases of pharynx Visit for screening mammogram documented in this encounter Additional Health Concerns Infection Onset Date Last Indicated Resolved Time CoV-Risk 03/28/2022 03/28/2022 04/08/2022 1:24 AM EDT documented as of this encounter Care Teams Track Service Person Relationship Specialty Start Date End Date Darnell Cheney DO PCP - General Internal Medicine 06/04/20 Darnell Cheney DO 06/04/20 Darnell Cheney DO Historical LMR Provider 08/24/17 Mehul Keita MD [address] [place] [address] Historical LMR Provider 08/24/17 Camila Garcia MD [address] [place] [address] Orthopedics & Sports Medicine, [place] [address] Historical LMR Provider 08/24/17 Darnell Cheney DO [address] [place] [address] Insurance Assigned Provider 03/11/20 09/16/23 Darnell Cheney DO [address] [place] [address] [email or web address] Insurance Assigned Provider 02/10/24 07/12/25 documented as of this encounter Additional Source Comments The information contained in this document represents components of the legal health record. It is not the complete legal health record.[facility]
--- OUTSIDE RECORDS SUMMARY | 2025-07-28 07:55 | XMS_ITS | Encounter Summary ---
Author Organization [facility] Address [facility] [address] [place] [address] Phone Care Team Providers Care Psych Social Worker Name Role Phone [place], Darnell A DO Primary Care Provider [phone] Bigda, Darnell A DO Unavailable Bigda, Darnell A DO Unavailable Mehul Keita MD Unavailable Camila Garcia MD Unavailable [phone] Bigda, Darnell A DO Unavailable Bigda, Darnell A DO Unavailable Encounter Details Date Type Department Care Team (Late st Contact Info) Description 12/16/2020 Procedure Pass [address] [address] Social History Tobacco Use Types Packs/Day Years [...] st Contact Info) Description 06/18/2025 Procedure Pass [address] [place] [address] 02/03/2026 11:00 AM EDT Appointment [facility], Mammography- [facility] [address] [place] [address] Darnell Cheney DO [address] [facility] [place] [address] 02/13/2026 8:00 AM EDT Telemedicine [facility] Department of Neurology [address] [facility], 8th Floor, [address] [place] [address] Kirk Catalan MD [address] [facility] [address] [place] [address] [email or web address] documented as of this encounter Visit Diagnoses Not on filedocumented in this encounter Additional Health Concerns Infection Onset Date Last Indicated Resolved Time CoV-Risk 03/28/2022 03/28/2022 04/08/2022 1:24 AM EDT documented as of this encounter Care Teams Psych Social Worker Relationship Specialty Start Date End Date Darnell Cheney DO [email or web address] PCP - General Internal Medicine 06/04/20 Darnell Cheney DO 06/04/20 Darnell Cheney DO [email or web address] Historical LMR Provider 08/24/17 Mehul Keita MD [address] [place] [address] Historical LMR Provider 08/24/17 Camila Garcia MD [address] [place] [address] Orthopedics & Sports Medicine, [place] [address] [email or web address] Historical LMR Provider 08/24/17 Darnell Cheney DO [address] [place] [address] Insurance Assigned Provider 03/11/20 09/16/23 Darnell Cheney DO [address] [place] [address] Insurance Assigned Provider 02/10/24 07/12/25 documented as of this encounter Additional Source Comments The information contained in this document represents components of the legal health record. It is not the complete legal health record.[facility]
--- OUTSIDE RECORDS SUMMARY | 2025-07-28 07:56 | XMS_ITS | Encounter Summary ---
Author Organization [facility] Address [address] [facility] [address] [place] [address] Phone Care Team Providers Care Orthotics Prosthetics Technician Name Role Phone Darnell Cheney DO Primary Care Provider [phone] Bigda, Darnell A DO Unavailable Bigda, Darnell A DO Unavailable Camila Garcia MD Unavailable [phone] Bigda, Darnell A DO Unavailable Encounter Details Date Type Department Care Team (Late st Contact Info) Description 02/29/2024 Procedure Pass [facility], [address] [address] Social History Tobacco Use Types Packs/Day Years Used Date Smoking Tobacco: Former Cigarettes Q uit: 05/07/2012 Smokeless Tobacco: Never Alcohol Use Standard Drinks/Week Comments Yes 1 (1 standard drink = 0.6 oz pur [...] st Contact Info) Description 06/18/2025 Procedure Pass [address] [address] 02/03/2026 11:00 AM EDT Appointment [address] [address] Darnell Cheney DO [address] [facility] [place] [address] [email or web address] 02/13/2026 8:00 AM EDT Telemedicine [facility] Department of Neurology [address] [place] [address], 8th Floor, [address] [place] [address] Kirk Catalan MD [address] [facility] [address] [place] [address] [email or web address] documented as of this encounter Visit Diagnoses Not on filedocumented in this encounter Care Teams Orthotics Prosthetics Technician Relationship Specialty Start Date End Date Darnell Cheney DO PCP - General Internal Medicine 06/04/20 Darnell Cheney DO 06/04/20 Darnell Cheney DO Historical LMR Provider 08/24/17 Camila Garcia MD [address] [place] [address] Orthopedics & Sports Medicine, [facility]. [place], [place] [id number] [email or web address] Historical LMR Provider 08/24/17 Darnell Cheney DO [address] [place] [address] [email or web address] Insurance Assigned Provider 02/10/24 07/12/25 documented as of this encounter Additional Source Comments The information contained in this document represents components of the legal health record. It is not the complete legal health record.[facility]
--- OUTSIDE RECORDS SUMMARY | 2025-07-28 07:56 | XMS_ITS | Encounter Summary ---
Author Organization [facility] Address Replaced by [facility] [employer] [facility] ([place], [place]) [address] [place] [address] Phone Care Team Providers Care Makeup Artistry Instructor Name Role Phone Bigda, Darnell A DO Primary Care Provider [phone] Bigda, Darnell A DO Primary Care Provider [phone] Bigda, Darnell A DO Unavailable Bigda, Darnell A DO Unavailable Mehul Keita MD Unavailable [phone] Camila Garcia MD Unavailable [phone] Bigda, Darnell A DO Unavailable Bigda, Darnell A DO Unavailable Encounter Details Date Type Department Care Team (Late st Contact Info) Description 11/07/2017 Ancillary Orders [facility],Outside [facility] [address] [place] [address] System, Provider Not In, [place] [address] Social History Tobacco Use Types Packs/Day Years Used Date Smoking Tobacco: Never Assessed Comments No Sex and Gender Information Value Date Recorded Sex Assigned at Female 06/05/2020 2:08 PM EDT Legal Sex Female 12:47 PM EDT Gender Identity Female 06/05/2020 2:08 PM EDT Sexual Orientation Straight 06/05/2020 2: 08 PM EDT documented as of this encounter Plan of Treatment Upcoming Encounters Date Type Department Care Team (Late st Contact Info) Description 06/18/2025 Procedure Pass [facility], [address] [address] 02/03/2026 11:00 AM EDT Appointment [address] [address] Darnell Cheney DO 179 [facility] [address] 02/13/2026 8:00 AM EDT Telemedicine [facility] Department of Neurology [address] [place] [address], 8th Floor, [address] [place] [address] Kirk Catalan MD [address] [place] [address] [facility] [address] [place] [address] [email or web address] documented as of this encounter Results * Mammogram Outside (No [...] documented as of this encounter Care Teams Makeup Artistry Instructor Relationship Specialty Start Date End Date Darnell Cheney DO PCP - General 08/22/17 06/03/20 Darnell Cheney DO PCP - General Internal Medicine 06/04/20 Darnell Cheney DO 06/04/20 Darnell Cheney DO Historical LMR Provider 08/24/17 Mehul Keita MD [address] [place] [address] Historical LMR Provider 08/24/17 Camila Garcia MD [address] [place] [address] Orthopedics [facility] Sports Medicine, [place] [address] Historical LMR Provider 08/24/17 Darnell Cheney DO [address] [place] [address] Insurance Assigned Provider 03/11/20 09/16/23 Darnell Cheney DO [address] [place] [address] Insurance Assigned Provider 02/10/24 07/12/25 documented as of this encounter Additional Source Comments The information contained in this document represents components of the legal health record. It is not the complete legal health record.[facility]
--- OUTSIDE RECORDS SUMMARY | 2025-07-28 07:56 | XMS_ITS | Encounter Summary ---
Author Organization [facility] Address [facility] [address] [place] [address] Phone Care Team Providers Care Film And Video Editor Name Role Phone [place], Darnell A DO Primary Care Provider [phone] Bigda, Darnell A DO Unavailable Bigda, Darnell A DO Unavailable Mehul Keita MD Unavailable [phone] Camila Garcia MD Unavailable [phone] Bigda, Darnell A DO Unavailable Bigda, Darnell A DO Unavailable Encounter Details Date Type Department Care Team (Late st Contact Info) Description 08/14/2020 Procedure Pass [address] [address] Social History Tobacco Use Types Packs/Day Years [...] st Contact Info) Description 06/18/2025 Procedure Pass [address] [place] [address] 02/03/2026 11:00 AM EDT Appointment [facility], Mammography- [facility] [address] [place] [address] Darnell Cheney DO 179 [facility] [place] [address] 02/13/2026 8:00 AM EDT Telemedicine [facility] Department of Neurology [address] [facility], 8th Floor, [address] [place] [address] Kirk Catalan MD 55 [facility] [address] [place] [address] [email or web address] documented as of this encounter Visit Diagnoses Not on filedocumented in this encounter Additional Health Concerns Infection Onset Date Last Indicated Resolved Time CoV-Risk 03/28/2022 03/28/2022 04/08/2022 1:24 AM EDT documented as of this encounter Care Teams Film And Video Editor Relationship Specialty Start Date End Date Darnell Cheney DO [email or web address] PCP - General Internal Medicine 06/04/20 Darnell Cheney DO 06/04/20 Darnell Cheney DO [email or web address] Historical LMR Provider 08/24/17 Mehul Keita MD [address] [place] [address] Historical LMR Provider 08/24/17 Camila Garcia MD [address] [place] [address] [facility] [place] [address] Historical LMR Provider 08/24/17 Darnell Cheney DO [address] [place] [address] Insurance Assigned Provider 03/11/20 09/16/23 Darnell Cheney DO 179 [place] [address] Insurance Assigned Provider 02/10/24 07/12/25 documented as of this encounter Additional Source Comments The information contained in this document represents components of the legal health record. It is not the complete legal health record.[facility]
--- OUTSIDE RECORDS SUMMARY | 2025-07-28 07:56 | XMS_ITS | Encounter Summary ---
Author Organization [facility] Address [facility] [employer] [address] [address] Phone Care Team Providers Care Scooter Mechanic Name Role Phone Darnell Cheney DO Primary Care Provider [phone] Darnell Cheney DO Unavailable Darnell Cheney DO Unavailable Mehul Keita MD Unavailable Camila Garcia MD Unavailable [phone] Darnell Cheney DO Unavailable Darnell Cheney Michel DO Unavailable Reason for Referral * MRI/CAT Scan - Closed Specialty Diagnoses / Procedures Referred By Johnathon mckeon Referred To Contact Radiology Diagnoses Unspecified voice and resonance disorder Dysphonia Procedures CT Neck CHG CT NECK TISSUE CONTRAST CHG CT SCAN,SOFT TISSUE NECK,W/O CONTRAST Darnell Cheney DO Phone: tel: fax: [email or web address] Referral ID Status Reason Start Date Expiration Date Visits Re quested Visits Authorized [id number] Closed 12/04/2020 01/03/2021 1 1 Encounter Details Date Type Department Care Team ([facility] [place] Contact Info) Description 11/25/2020 Transcribe Orders [facility] Department [address] [place] [address] Darnell Cheney DO 179 [facility] [place] [address] [email or web address] Unspecified voice and resonance disorder (Primary Dx); Dysphonia Social History Tobacco Use Types Packs/Day Years [...] st Contact Info) Description 06/18/2025 Procedure Pass [address] [address] 02/03/2026 11:00 AM EDT Appointment [address] [address] Darnell Cheney, DO 179 [facility] [place] [address] [email or web address] 02/13/2026 8:00 AM EDT Telemedicine [facility] Department of Neurology [address] [place] [address], 8th Floor, [address] [place] [address] Kirk Catalan MD [address] [place], [place] [address]CC [address] [place] [address] [email or web address] documented as of this encounter Results * CT NECK SOFT TISSUE WITH CONTRAST (12/04/2020 8:43 AM EST) Anatomical Region Laterality Modality Neck Computed Tomogra phy 12/04/2020 8:45 AM EST Narrative 12/04/2020 9:30 AM EST TECHNIQUE: Diagnostic CT NECK SOFT TISSUE WITH CONTRAST . Clinical history: Evaluate for laryngeal mass. Patient states abnormal sensation in throat. FINDINGS: The visualized intracranial contents are normal. No evidence of masses in the paranasal sinuses. Dental metallic artifact results in some streak artifact in the oral cavity, limiting evaluation of the mandible, tongue and submandibular glands. Parotid and submandibular glands demonstrate no definite masses. There are no mass lesions parapharyngeal spaces. Normal mucosal landmarks of the fossa of Rosenmuller and torus tubarius of the nasopharynx are preserved. There is moderate narrowing of the left side of the oropharynx, where there is moderate fullness of soft tissues that arise from the left side of the tongue, secondary to a relatively hypodense mass lesion that measures 2 x 1.5 cm approximately, displacing the uvula. The finding is consistent with probable neoplasm, although inflammatory-infectious etiologies cannot be totally excluded. Piriform sinuses appear normal. Preepiglottic space and epiglottis are normal. No abnormalities are seen at the level of the false or true vocal cords. Thyroid gland states abnormalities. No evidence of suprahyoid or infrahyoid neck lymphadenopathy. No bony abnormalities demonstrated. Visualized lungs demonstrate no abnormalities. 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 Follow-up MRI examination with gadolinium contrast agent administration should be helpful for further evaluation. No evidence of suprahyoid or infrahyoid neck lymphadenopathy. Procedure Note Ramírez Choudhary MD - 12/04/2020 TECHNIQUE: Diagnostic CT NECK SOFT TISSUE WITH CONTRAST . Clinical history: Evaluate for laryngeal mass. Patient states abnormalsensation in throat. FINDINGS: The visualized intracranial contents are normal. No evidence of masses inthe paranasal sinuses. Dental metallic artifact results in some streak artifact in the oralcavity, limiting evaluation of the mandible, tongue and submandibularglands. Parotid and submandibular glands demonstrate no definite masses. There areno mass lesions parapharyngeal spaces. Normal mucosal landmarks of the fossa of Rosenmuller and torus tubarius ofthe nasopharynx are preserved. There is moderate narrowing of the left side of the oropharynx, wherethere is moderate fullness of soft tissues that arise from the left sideof the tongue, secondary to a relatively hypodense mass lesion thatmeasures 2 x 1.5 cm approximately, displacing the uvula. The finding isconsistent with probable neoplasm, although inflammatory-infectiousetiologies cannot be totally excluded. Piriform sinuses appear normal. Preepiglottic space and epiglottis arenormal. No abnormalities are seen at the level of the false or true vocal cords. Thyroid gland states abnormalities. No evidence of suprahyoid or infrahyoid neck lymphadenopathy. No bony abnormalities demonstrated. Visualized lungs demonstrate no abnormalities. 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 Follow-up MRI examination with gadolinium contrast agent administrationshould be helpful for further evaluation. No evidence of suprahyoid or infrahyoid neck lymphadenopathy. us Darnell Cheney DO IMG CT XSPECIALTY ORDERABLES Fin al Result documented in this encounter Visit Diagnoses Diagnosis Unspecified voice and resonance disorder- Primary Dysphonia Unspecified voice and resonance disorder Dysphonia Visit for screening mammogram documented in this encounter Additional Health Concerns Infection Onset Date Last Indicated Resolved Time CoV-Risk 03/28/2022 03/28/2022 04/08/2022 1:24 AM EDT documented as of this encounter Care Teams Scooter Mechanic Relationship Specialty Start Date End Date Darnell Cheney DO PCP - General Internal Medicine 06/04/20 Darnell Cheney DO 06/04/20 Darnell Cheney DO Historical LMR Provider 08/24/17 Mehul Keita MD [address] [place] [address] Historical LMR Provider 08/24/17 Camila Garcia MD [address] [place] [address] Orthopedics & Sports Medicine, [facility] [place] [address] Historical LMR Provider 08/24/17 Darnell Cheney DO [address] [place] [address] Insurance Assigned Provider 03/11/20 09/16/23 Darnell Cheney DO 179 [place] [address] Insurance Assigned Provider 02/10/24 07/12/25 documented as of this encounter Additional Source Comments The information contained in this document represents components of the legal health record. It is not the complete legal health record.[facility]
--- OUTSIDE RECORDS SUMMARY | 2025-07-28 07:56 | XMS_ITS | Encounter Summary ---
Author Organization [facility] Address [facility] [employer] [facility] [address] [place] [address] Phone Care Team Providers Care Hazardous Materials Analyst Name Role Phone Bigda, Darnell A DO Primary Care Provider [phone] Bigda, Darnell A DO Primary Care Provider [phone] Bigda, Darnell A DO Unavailable Bigda, Darnell A DO Unavailable Mehul Keita MD Unavailable [phone] Camila Garcia MD Unavailable [phone] Bigda, Darnell A DO Unavailable Bigda, Darnell A DO Unavailable Encounter Details Date Type Department Care Team (Late st Contact Info) Description 11/07/2017 Ancillary Orders [facility],Outside [facility] [address] [place] [address] System, Provider [place] In, [place] [address] Social History Tobacco Use Types Packs/Day Years [...] st Contact Info) Description 06/18/2025 Procedure Pass [facility] [address] [address] 02/03/2026 11:00 AM EDT Appointment [address] [address] Darnell Cheney DO 179 [facility] [place] [address] 02/13/2026 8:00 AM EDT Telemedicine [facility] Department of Neurology [address] [place] [address], 8th Floor, [address] [place] [address] Kirk Catalan MD [address] [place] [address] [facility] [address] [place] [address] [email or web address] documented as of this encounter Results * XR Chest Outside [...] documented as of this encounter Care Teams Hazardous Materials Analyst Relationship Specialty Start Date End Date Darnell Cheney DO PCP - General 08/22/17 06/03/20 Darnell Cheney DO PCP - General Internal Medicine 06/04/20 Darnell Cheney DO 06/04/20 Darnell Cheney DO Historical LMR Provider 08/24/17 Mehul Keita MD [address] [place] [address] Historical LMR Provider 08/24/17 Camila Garcia MD [address] [place] [address] [facility], [place] [address] Historical LMR Provider 08/24/17 Darnell Cheney DO 179 [place] [address] Insurance Assigned Provider 03/11/20 09/16/23 Darnell Cheney DO 179 [place] [address] Insurance Assigned Provider 02/10/24 07/12/25 documented as of this encounter Additional Source Comments The information contained in this document represents components of the legal health record. It is not the complete legal health record.[facility]
--- OUTSIDE RECORDS SUMMARY | 2025-07-28 07:56 | XMS_ITS | Encounter Summary ---
Author Organization [facility] Address [facility] [employer] [facility] [address] [place] [address] Phone Care Team Providers Care Steam Fitter Supervisor Name Role Phone Bigda, Darnell A DO Primary Care Provider [phone] Bigda, Darnell A DO Primary Care Provider [phone] Bigda, Darnell A DO Unavailable Bigda, Darnell A DO Unavailable Mehul Keita MD Unavailable Camila Garcia MD Unavailable [phone] Bigda, Darnell A DO Unavailable Bigda, Darnell A DO Unavailable Encounter Details Date Type Department Care Team (Late st Contact Info) Description 11/07/2017 Ancillary Orders [facility],Outside [facility] [address] [place] [address] System, Provider Not In, [place] [address] Social History Tobacco Use Types Packs/Day Years [...] st Contact Info) Description 06/18/2025 Procedure Pass [facility], [address] [address] 02/03/2026 11:00 AM EDT Appointment [address] [address] Darnell Cheney DO 179 [facility] [place] [address] 02/13/2026 8:00 AM EDT Telemedicine [facility] [place] of Neurology [address] [place] [address], 8th Floor, [address] [place] [address] Kirk Catalan MD [address] [place] [address] WACC [address] [place] [address] [email or web address] documented as of this encounter Results [...] documented as of this encounter Care Teams Steam Fitter Supervisor Relationship Specialty Start Date End Date Darnell Cheney DO PCP - General 08/22/17 06/03/20 Darnell Cheney DO PCP - General Internal Medicine 06/04/20 Darnell Cheney DO 06/04/20 Darnell Cheney DO Historical LMR Provider 08/24/17 Mehul Keita MD [address] [place] [address] Historical LMR Provider 08/24/17 Camila Garcia MD [address] [place] [address] Orth[facility] Medicine, [place] [address] Historical LMR Provider 08/24/17 Darnell Cheney DO [address] [place] [address] Insurance Assigned Provider 03/11/20 09/16/23 Darnell Cheney DO [address] [place] [address] Insurance Assigned Provider 02/10/24 07/12/25 documented as of this encounter Additional Source Comments The information contained in this document represents components of the legal health record. It is not the complete legal health record.[facility]
--- OUTSIDE RECORDS SUMMARY | 2025-07-28 07:56 | XMS_ITS | Encounter Summary ---
Author Organization [facility] Address Pending sale to [facility] [employer] [facility] [address] [place] [address] Phone Care Team Providers Care Solar Power Installer Name Role Phone [place], Darnell A DO Primary Care Provider [phone] Bigda, Darnell A DO Unavailable Bigda, Darnell A DO Unavailable Mehul Keita MD Unavailable [phone] Camila Garcia MD Unavailable [phone] Bigda, Darnell A DO Unavailable Bigda, Darnell A DO Unavailable Encounter Details Date Type Department Care Team (Late st Contact Info) Description 09/07/2021 Procedure Pass [facility] Endoscopy Admitting Dept Virtual Department [address] [place] [address] Social History Tobacco Use Types Packs/Day Years [...] st Contact Info) Description 06/18/2025 Procedure Pass [facility], [facility] [address] [place] [address] 02/03/2026 11:00 AM EDT Appointment [facility], Mammography- [facility] [address] [place] [address] Darnell Cheney DO 179 [facility] [place] [place] [address] 02/13/2026 8:00 AM EDT Telemedicine [facility] Department of Neurology [address] [facility], 8th Floor, [address] [place] [address] Kirk Catalan MD 55 [facility] WACC [address] [place] [address] [email or web address] u documented as of this encounter Visit Diagnoses Not on filedocumented in this encounter Additional Health Concerns Infection Onset Date Last Indicated Resolved Time CoV-Risk 03/28/2022 03/28/2022 04/08/2022 1:24 AM EDT documented as of this encounter Care Teams Solar Power Installer Relationship Specialty Start Date End Date Darnell Cheney DO [email or web address] PCP - General Internal Medicine 06/04/20 Darnell Cheney DO 06/04/20 Darnell Cheney DO [email or web address] Historical LMR Provider 08/24/17 Mehul Keita MD [address] [place] [address] Historical LMR Provider 08/24/17 Camila Garcia MD [address] [place] [address] [facility] [place] [address] Historical LMR Provider 08/24/17 Darnell Cheney DO 179 [place] [address] Insurance Assigned Provider 03/11/20 09/16/23 Darnell Cheney DO 179 [place] [address] Insurance Assigned Provider 02/10/24 07/12/25 documented as of this encounter Additional Source Comments The information contained in this document represents components of the legal health record. It is not the complete legal health record.[facility]
--- OUTSIDE RECORDS SUMMARY | 2025-07-28 07:56 | XMS_ITS | Encounter Summary ---
Author Organization [facility] Address [facility] [employer] [facility] [address] [place] [address] Phone Care Team Providers Care Walking Dragline Operator Name Role Phone [place], Darnell A DO Primary Care Provider [phone] Bigda, Darnell A DO Unavailable Bigda, Darnell A DO Unavailable Mehul Keita MD Unavailable [phone] Camila Garcia MD Unavailable [phone] Bigda, Darnell A DO Unavailable Bigda, Darnell A DO Unavailable Encounter Details Date Type Department Care Team (Late st Contact Info) Description 06/11/2020 Procedure Pass [facility]oscopy Admitting Dept Virtual Department [address] [place] [address] Social History Tobacco Use Types Packs/Day Years [...] st Contact Info) Description 06/18/2025 Procedure Pass [facility], [facility] [address] [place] [address] 02/03/2026 11:00 AM EDT Appointment [facility], [facility] [address] [place] [address] Darnell Cheney DO 179 [facility] [place] [address] 02/13/2026 8:00 AM EDT Telemedicine [facility] Department of Neurology 55 [facility], 8th Floor, [address] [place] [address] Kirk Catalan MD 55 [facility] [address] [place] [address] [email or web address] documented as of this encounter Visit Diagnoses Not on filedocumented in this encounter Additional Health Concerns Infection Onset Date Last Indicated Resolved Time CoV-Risk 03/28/2022 03/28/2022 04/08/2022 1:24 AM EDT documented as of this encounter Care Teams Walking Dragline Operator Relationship Specialty Start Date End Date Darnell Cheney DO PCP - General Internal Medicine 06/04/20 Darnell Cheney DO 06/04/20 Darnell Cheney DO [email or web address] Historical LMR Provider 08/24/17 Mehul Keita MD [address] [place] [address] Historical LMR Provider 08/24/17 Camila Garcia MD [address] [place] [address] Orthopedics & Sports Medicine, [facility] [place] [address] Historical LMR Provider 08/24/17 Darnell Cheney DO [address] [place] [address] Insurance Assigned Provider 03/11/20 09/16/23 Darnell Cheney DO [address] [place] [address] Insurance Assigned Provider 02/10/24 07/12/25 documented as of this encounter Additional Source Comments The information contained in this document represents components of the legal health record. It is not the complete legal health record.[facility]
--- OUTSIDE RECORDS SUMMARY | 2025-07-28 07:56 | XMS_ITS | Encounter Summary ---
Author Organization [facility] Address [facility] [address] [place] [address] Phone Care Team Providers Care Marble Worker Name Role Phone Shravan, Darnell Michel DO Primary Care Provider [phone] Bigda, Darnell A DO Primary Care Provider [phone] Bigda, Darnell A DO Unavailable Bigda, Darnell A DO Unavailable Mehul Keita MD Unavailable Camila Garcia MD Unavailable [phone] Bigda, Darnell A DO Unavailable Bigda, Darnell A DO Unavailable Encounter Details Date Type Department Care Team (Late st Contact Info) Description 08/07/2019 Transcribe Orders Virtual Department [address] [place] [address] Shravan, Darnell Pearson, DO 179 [facility] [address] Social History Tobacco Use Types Packs/Day Years [...] st Contact Info) Description 06/18/2025 Procedure Pass [address] [address] 02/03/2026 11:00 AM EDT Appointment [address] [address] Darnell Cheney DO 179 [facility] [address] [email or web address] 02/13/2026 8:00 AM EDT Telemedicine [place] Department of Neurology [address] [place] [address], 8th Floor, [address] [place] [address] Kirk Catalan MD [address] [place] [address] [address] [place] [address] [email or web address] documented as of this encounter Visit Diagnoses Not on filedocumented in this encounter Additional Health Concerns Infection Onset Date Last Indicated Resolved Time CoV-Risk 03/28/2022 03/28/2022 04/08/2022 1:24 AM EDT documented as of this encounter Care Teams Marble Worker Relationship Specialty Start Date End Date Darnell Cheney DO PCP - General 08/22/17 06/03/20 Darnell Cheney DO PCP - General Internal Medicine 06/04/20 Darnell Cheney DO 06/04/20 Darnell Cheney DO Historical LMR Provider 08/24/17 Mehul Keita MD [address] [place] [address] Historical LMR Provider 08/24/17 Camila Garcia MD [address] [place] [address] [facility], [place] [address] Historical LMR Provider 08/24/17 Darnell Cheney DO [address] [place] [address] Insurance Assigned Provider 03/11/20 09/16/23 Darnell Cheney DO [address] [place] [address] Insurance Assigned Provider 02/10/24 07/12/25 documented as of this encounter Additional Source Comments The information contained in this document represents components of the legal health record. It is not the complete legal health record.[facility]
--- OUTSIDE RECORDS SUMMARY | 2025-07-28 07:56 | XMS_ITS | Encounter Summary ---
Author Organization [facility] Address [facility] [employer] [address] [address] Phone Care Team Providers Care Cancer Program Coordinator Name Role Phone Shravan, Darnell A DO Primary Care Provider [phone] Bigda, Darnell A DO Primary Care Provider [phone] Bigda, Darnell A DO Unavailable Bigda, Darnell A DO Unavailable Mehul Keita MD Unavailable Camila Garcia MD Unavailable Bigda, Darnell A DO Unavailable Bigda, Darnell A DO Unavailable Encounter Details Date Type Department Care Team (Late Contact Info) Description 10/10/2017 Ancillary Orders Virtual Department [address] [place] [address] Biglincoln, Darnell Pearson, DO 179 [facility] [place] [address] Breast screening Social History Tobacco Use Types Packs/Day Years Used Date Smoking Tobacco: Never Assessed Comments Unknown Sex and Gender Information Value Date Recorded Sex Assigned at Female 06/05/2020 2:08 PM EDT Legal Sex Female 12:47 PM EDT Gender Identity Female 06/05/2020 2:08 PM EDT Sexual Orientation Straight 06/05/2020 2: 08 PM EDT documented as of this encounter Plan of Treatment Upcoming Encounters Date Type Department Care Team (Late Contact Info) Description 06/18/2025 Procedure Pass [address] [address] 02/03/2026 11:00 AM EDT Appointment [address] [address] Darnell Cheney DO 179 [facility] [place] [address] [place] [address] [email or web address] 02/13/2026 8:00 AM EDT Telemedicine [facility] [place]rology [address] [place] [address], 8th Floor, [address] [place] [address] Kirk Catalan MD [address] [place] [address] [address] [place] [address] [email or web address] documented as of this encounter Results * BI MAMMOGRAM SCREENING WITH TOMOSYNTHESIS WITH CAD (BILATERAL) (10/26/2017 3:12 PM EST) Anatomical Region Laterality Modality Breast Left, Breast Right, Breast Bilateral Bila teral Mammography 10/31/2017 8:06 AM EST Impressions 10/31/2017 8:07 AM EST Normal negative. Annual screening is recommended. Patient notified by letter. BI-RADS CATEGORY: 1 - Negative. DENSITY: The breast tissue is almost entirely fat. POS: [id number] Narrative 10/31/2017 8:07 AM EST Screening Mammogram, bilateral with utilization of computer aided detection and tomosynthesis as well as 2-D C view imaging. Baseline examination Findings: No suspicious masses or suspicious clustered microcalcifications are present. No architectural distortion or significant asymmetry is present. Breasts are composed of predominantly fat Procedure Note Chicho Barrios MD - 10/31/2017 Screening Mammogram, bilateral with utilization of computer aideddetection and tomosynthesis as well as 2-D C view imaging. Baseline examination Findings: No suspicious masses or suspicious clustered microcalcificationsare present. No architectural distortion or significant asymmetry ispresent. Breasts are composed of predominantly fat IMPRESSION: Normal negative. Annual screening is recommended. Patient notified by letter. BI-RADS CATEGORY: 1 - Negative. DENSITY: The breast tissue is almost entirely fat. POS: [id number] Darnell Cheney DO IMG MG EXAMS Final Result documented in this encounter Visit Diagnoses Diagnosis Breast screening Breast screening, unspecified Breast screening Breast screening, unspecified Visit for screening mammogram documented in this encounter Additional Health Concerns Infection Onset Date Last Indicated Resolved Time CoV-Risk 03/28/2022 03/28/2022 04/08/2022 1:24 AM EDT documented as of this encounter Care Teams Cancer Program Coordinator Relationship Specialty Start Date End Date Darnell Cheney DO PCP - General 08/22/17 06/03/20 Darnell Cheney DO PCP - General Internal Medicine 06/04/20 Darnell Cheney DO 06/04/20 Darnell Cheney DO Historical LMR Provider 08/24/17 Mehul Keita MD [address] [place] [address] Historical LMR Provider 08/24/17 Camila Garcia MD [address] [place] [address] [facility] Medicine, [place] [address] [email or web address] Historical LMR Provider 08/24/17 Darnell Cheney DO 179 [place] [address] Insurance Assigned Provider 03/11/20 09/16/23 Darnell Cheney DO 179 [place] [address] Insurance Assigned Provider 02/10/24 07/12/25 documented as of this encounter Additional Source Comments The information contained in this document represents components of the legal health record. It is not the complete legal health record.[facility]
--- OUTSIDE RECORDS SUMMARY | 2025-07-28 07:56 | XMS_ITS | Encounter Summary ---
Author Organization [facility] Address [address] [facility] [address] [place] [address] Phone Care Team Providers Care Forest Law And Policy Professor Name Role Phone Darnlel Cheney DO Primary Care Provider [phone] Bigda, Darnell Michel DO Unavailable Bigda, Darnell A DO Unavailable Mehul Keita MD Unavailable Camila Garcia MD Unavailable Bigda, Darnell Pearson DO Unavailable Bigda, Darnell Pearson DO Unavailable Encounter Details Date Type Department Care Team (Late st Contact Info) Description 08/14/2020 Ancillary Orders Virtual Department [address] [place] [address] Darnell Cheney DO 179 [facility] [place] [address] Breast screening Social History Tobacco Use Types [...] st Contact Info) Description 06/18/2025 Procedure Pass [address] [address] 02/03/2026 11:00 AM EDT Appointment [address] [address] Darnell Cheney DO 179 [facility] [place] [address] [place] [address] [email or web address] 02/13/2026 8:00 AM EDT Telemedicine [facility] Department of Neurology [address] [place] [address], 8th Floor, [address] [place] [address] Kirk Catalan MD [address] [place], [place] [address] [address] [place] [address] [email or web address] documented as of this encounter Results * BI MAMMOGRAM SCREENING WITH TOMOSYNTHESIS WITH CAD (BILATERAL) (11/26/2020 10:09 AM EST) Anatomical Region Laterality Modality Breast Left, Breast Right, Breast Bilateral Bila teral Mammography 11/26/2020 1:17 PM EST Impressions 11/26/2020 1:22 PM EST No mammographic signs of malignancy. Annual screening is recommended. BI-RADS CATEGORY: 2 - Benign finding. DENSITY: There are scattered fibroglandular densities. Narrative 11/26/2020 1:22 PM EST Bilateral mammography is performed in conjunction with computed aided detection. 3-D tomography along with 2-D C view imaging was also performed. Comparison made to previous dated as far back as 05/15/2012 and as recent as 11/21/2018. No suspicious masses, areas of architectural distortion or suspicious microcalcifications. Coarse calculations with benign characteristics in the anterior aspects of each breast are stable. Procedure Note Benedict Elizabeth MD - 11/26/2020 Bilateral mammography is performed in conjunction with computed aideddetection. 3-D tomography along with 2-D C view imaging was alsoperformed. Comparison made to previous dated as far back as 05/15/2012 andas recent as 11/21/2018. No suspicious masses, areas of architectural distortion or suspiciousmicrocalcifications. Coarse calculations with benign characteristics inthe anterior aspects of each breast are stable. IMPRESSION: No mammographic signs of malignancy. Annual screening is recommended. BI-RADS CATEGORY: 2 - Benign finding. DENSITY: There are scattered fibroglandular densities. us Darnell Cheney DO IMG MG EXAMS Final Result documented in this encounter Visit Diagnoses Diagnosis Breast screening Breast screening, unspecified Breast screening Breast screening, unspecified Visit for screening mammogram documented in this encounter Additional Health Concerns Infection Onset Date Last Indicated Resolved Time CoV-Risk 03/28/2022 03/28/2022 04/08/2022 1:24 AM EDT documented as of this encounter Care Teams Forest Law And Policy Professor Relationship Specialty Start Date End Date Darnell Cheney DO PCP - General Internal Medicine 06/04/20 Darnell Cheney DO 06/04/20 Darnell Cheney DO Historical LMR Provider 08/24/17 Mehul Keita MD [address] [place] [address] Historical LMR Provider 08/24/17 Camila Garcia MD [address] [place] [address] Orth[facility] Medicine, [place] [address] Historical LMR Provider 08/24/17 Darnell Cheney DO 179 [place] [address] Insurance Assigned Provider 03/11/20 09/16/23 Darnell Cheney DO 179 [place] [address] Insurance Assigned Provider 02/10/24 07/12/25 documented as of this encounter Additional Source Comments The information contained in this document represents components of the legal health record. It is not the complete legal health record.[facility]
--- OUTSIDE RECORDS SUMMARY | 2025-07-28 07:56 | XMS_ITS | Encounter Summary ---
Author Organization [facility] Address [facility] [employer] [facility] [address] [place] [address] Phone Care Team Providers Care Almond Pan Finisher Name Role Phone Biglincoln, Darnell A DO Primary Care Provider [phone] Bigda, Darnell A DO Unavailable Bigda, Darnell A DO Unavailable Mehul Keita MD Unavailable Camila Garcia MD Unavailable [phone] Bigda, Darnell A DO Unavailable Bigda, Darnell A DO Unavailable Encounter Details Date Type Department Care Team (Late st Contact Info) Description 11/25/2020 Procedure Pass [facility], [address] [address] Social History Tobacco Use Types Packs/Day Years [...] st Contact Info) Description 06/18/2025 Procedure Pass [facility], [facility]- [address] [address] 02/03/2026 11:00 AM EDT Appointment [facility], [facility] [address] [place] [address] Darnell Cheney DO 179 [facility] [place] [address] 02/13/2026 8:00 AM EDT Telemedicine [facility] Department of Neurology [address] [facility], 8th Floor, [address] [place] [address] Kirk Catalan MD [address] [facility] [address] [place] [address] [email or web address] documented as of this encounter Visit Diagnoses Not on filedocumented in this encounter Additional Health Concerns Infection Onset Date Last Indicated Resolved Time CoV-Risk 03/28/2022 03/28/2022 04/08/2022 1:24 AM EDT documented as of this encounter Care Teams Almond Pan Finisher Relationship Specialty Start Date End Date Darnell Cheney DO [email or web address] PCP - General Internal Medicine 06/04/20 Darnell Cheney DO 06/04/20 Darnell Cheney DO [email or web address] Historical LMR Provider 08/24/17 Mehul Keita MD [address] [place] [address] Historical LMR Provider 08/24/17 Camila Garcia MD [address] [place] [address] Orthopedics & Sports Medicine, [facility] [place] [address] [email or web address] Historical LMR Provider 08/24/17 Darnell Cheney DO 179 [place] [address] Insurance Assigned Provider 03/11/20 09/16/23 Darnell Cheney DO 179 [place] [address] Insurance Assigned Provider 02/10/24 07/12/25 documented as of this encounter Additional Source Comments The information contained in this document represents components of the legal health record. It is not the complete legal health record.[facility]
--- OUTSIDE RECORDS SUMMARY | 2025-07-28 07:56 | XMS_ITS | Encounter Summary ---
Author Organization [facility] Address [facility] [email or web address] [facility] [address] [place] [address] Phone Care Team Providers Care Engineering Program Analyst Name Role Phone Biglincoln, Darnell A DO Primary Care Provider [phone] Bigda, Darnell A DO Unavailable Bigda, Darnell A DO Unavailable Mehul Keita MD Unavailable Camila Garcia MD Unavailable [phone] Bigda, Darnell A DO Unavailable Bigda, Darnell A DO Unavailable Encounter Details Date Type Department Care Team (Late st Contact Info) Description 09/13/2021 Procedure Pass [address] [address] Social History Tobacco Use Types Packs/Day Years [...] st Contact Info) Description 06/18/2025 Procedure Pass [address] [place] [address] 02/03/2026 11:00 AM EDT Appointment [facility], Mammography- [facility] [address] [place] [address] Darnell Cheney DO 179 [facility] [place] [address] 02/13/2026 8:00 AM EDT Telemedicine [facility] Department of Neurology [address] [facility], 8th Floor, [address] [place] [address] Kirk Catalan MD 55 [facility] [address] [place] [address] [email or web address] documented as of this encounter Visit Diagnoses Not on filedocumented in this encounter Additional Health Concerns Infection Onset Date Last Indicated Resolved Time CoV-Risk 03/28/2022 03/28/2022 04/08/2022 1:24 AM EDT documented as of this encounter Care Teams Engineering Program Analyst Relationship Specialty Start Date End Date Darnell Cheney DO [email or web address] PCP - General Internal Medicine 06/04/20 Darnell Cheney DO 06/04/20 Darnell Cheney DO [email or web address] Historical LMR Provider 08/24/17 Mehul Keita MD [address] [place] [address] Historical LMR Provider 08/24/17 Camila Garcia MD [address] [place] [address] Orthopedics & Sports Medicine, [facility] [place] [address] [email or web address] Historical LMR Provider 08/24/17 Darnell Cheney DO [address] [place] [address] Insurance Assigned Provider 03/11/20 09/16/23 Darnell Cheney DO [address] [place] [address] Insurance Assigned Provider 02/10/24 07/12/25 documented as of this encounter Additional Source Comments The information contained in this document represents components of the legal health record. It is not the complete legal health record.[facility]
--- OUTSIDE RECORDS SUMMARY | 2025-07-28 07:56 | XMS_ITS | Encounter Summary ---
Author Organization [facility] Address [facility] [address] [place] [address] Phone Care Team Providers Care Administrative Accountant Name Role Phone Bigda, Darnell A DO Primary Care Provider [phone] Bigda, Darnell A DO Primary Care Provider [phone] Bigda, Darnell A DO Unavailable Bigda, Darnell A DO Unavailable Mehul Keita MD Unavailable [phone] Camila Garcia MD Unavailable [phone] Bigda, Darnell A DO Unavailable Bigda, Darnell A DO Unavailable Encounter Details Date Type Department Care Team (Late st Contact Info) Description 08/07/2019 Procedure Pass [facility], [address] [address] Social History Tobacco Use Types Packs/Day Years [...] st Contact Info) Description 06/18/2025 Procedure Pass [address] [address] 02/03/2026 11:00 AM EDT Appointment [facility] [address] [place] [address] Darnell Cheney DO 179 [facility] [place] [address] 02/13/2026 8:00 AM EDT Telemedicine [facility] Department of Neurology [address] [place] [address], 8th Floor, [address] [place] [address] Kirk Catalan MD [address] [place], [place] [address] [address] [place] [address] [email or web address] documented as of this encounter Visit Diagnoses Not on filedocumented in this encounter Additional Health Concerns Infection Onset Date Last Indicated Resolved Time CoV-Risk 03/28/2022 03/28/2022 04/08/2022 1:24 AM EDT documented as of this encounter Care Teams Administrative Accountant Relationship Specialty Start Date End Date Darnell Cheney DO PCP - General 08/22/17 06/03/20 Darnell Cheney DO PCP - General Internal Medicine 06/04/20 Darnell Cheney DO 06/04/20 Darnell Cheney DO Historical LMR Provider 08/24/17 eMhul Keita MD [address] [place] [address] Historical LMR Provider 08/24/17 Camila Garcia MD [address] [place] [address] [facility], [place] [address] Historical LMR Provider 08/24/17 Darnell Cheney DO 179 [place] [address] Insurance Assigned Provider 03/11/20 09/16/23 Darnell Cheney DO 179 [place] [address] Insurance Assigned Provider 02/10/24 07/12/25 documented as of this encounter Additional Source Comments The information contained in this document represents components of the legal health record. It is not the complete legal health record.[facility]
--- OUTSIDE RECORDS SUMMARY | 2025-07-28 07:56 | XMS_ITS | Clinical Summary ---
Author Organization [facility] Address [address] [employer] [facility] [address] [place] [address] Phone Care Team Providers Care Knot Bumper Name Role Phone [place] Artemio Michel Primary Care Provider [phone] Tomda, Artemio Pearson DO Unavailable Shravan, Artemio Peasron DO Unavailable Camila Garcia MD Unavailable [phone] Allergies No known active allergies Medications PARoxetine (PAXIL) 20 MG tablet Take 20 mg by mouth every morning. Active traZODone (DESYREL) 50 MG tablet Take 50 mg by mouth nightly. Active iron, ferronyl,-vitami n C 65 mg iron- 125 mg TbEC Take 1 tablet by mouth daily. Active CYANOCOBALAMIN, VITAMIN B-12, (VITAMIN B12 ORAL) Take by mouth daily. Active omeprazole (PRILOSEC) 40 MG capsule 06/26/2021 Active CALCIUM ORAL Take 1 tablet by mouth daily. Active Active Problems Problem Noted Date Diagnosed Date Decreased libido 08/05/2019 Assessment & Plan (08/05/2019 11:00 AM EDT): Discussed that decreased/absent libido is a common concern in postmenopausal women. Discussed multifactorial approach for management including lubricants, sex toys, scheduled time for intimacy, sex therapy, and trial of vaginal estrogen. Reviewed indications for vaginal estrogen vs. Systemic HRT. Elise is not having vasomotor symptoms thus would not recommend systemic replacement. Discussed transdermal testosterone and Addyi. Testosterone is not FDA approved but is sometimes prescribed for management of decreased libido. Addyi is a daily oral medication used for decreased libido but has frequent side effects (dizziness, tiredness) and results is only small benefits. Encouraged Elise to speak with her partner and consider lifestyle interventions +/- therapy. I see no contraindications to trial of herbal supplements however, cannot speak to their efficacy. Encounters Date Type Department Care Team Description 06/02/2025 Transcribe Orders [facility] Neurology [address] [place] [address] Bhumika Jones [place] Migraine, unspecified, not intractable, without status migrainosus (Primary Dx) from Last 3 Months Family History Medical History Relation Comments Ovarian cancer Mother Ovarian cancer a nd current multiple myeloma Relation Status Comments Mother Alive Social History Tobacco Use Types Packs/Day Years Used Date Smoking Tobacco: Former Cigarettes Q uit: 05/07/2012 Smokeless Tobacco: Never Tobacco Cessation:Counseling Given: Not Answered Alcohol Use Standard Drinks/Week Comments Yes 1 [...] Orientation Straight 06/05/2020 2: 08 PM EDT Last Filed Vital Signs Vital Sign Reading Time Taken Comments Blood Pressure 112/68 10/01/2024 3:48 PM EST Pulse 72 03/28/2022 11:41 AM EDT Temperature 36.1 C (97 F) 03/28/2022 11:41 AM EDT Respiratory Rate 18 03/28/2022 11:41 AM EDT Oxygen Saturation 97% 03/28/2022 11:41 AM EDT Inhaled Oxygen Concentration - - Weight 92.1 kg (203 lb) 10/01/2024 3:48 PM EST Height 167.6 cm (5' 6 ) 10/01/2024 3:48 PM EST Body Mass Index 32.77 10/01/2024 3:48 PM EST Plan of Treatment Upcoming Encounters Date Type Department Care Team (Late st Contact Info) Description 06/18/2025 Procedure Pass [address] [address] 02/03/2026 11:00 AM EDT Appointment [address] [address] Artemio Martinez DO [address] [facility] [place] [address] [email or web address] 02/13/2026 8:00 AM EDT Telemedicine [facility] Department of Neurology [address] [place] [address], 8th Floor, [address] [place] [address] Kirk Catalan MD [address] [place] [address] [address] [place] [address] [email or web address] Health Maintenance Due Date Last Done Comments DEPRESSION SCREENING 1972 SMOKING Hx and SMOKELESS TOBACCO SCREENING 1973 HEPATITIS C SCREENING 1978 HIV ONE-TIME SCREENING (18-65 YEARS) 1978 COLOGUARD 2005 FIT TEST 2005 FOBT 2005 SIGMOIDOSCOPY 2005 VIRTUAL COLONOSCOPY 2005 PNEUMOCOCCAL VACCINES (50+ years) (1 of 1 - PCV) 2010 ZOSTER VACCINES (1 of 2) 2010 SCREENING FOR DIABETES 03/28/2025 03/28/2022 OSTEOPOROSIS SCREENING INITIAL (ONE-TIME) 2025 INFLUENZA VACCINE (#1) 2025 COVID-19 VACCINE (3 - season) 2025 01/07/2021, 12/17/2020 LIPID PANEL 04/13/2026 04/13/2021, 04/13/2021 MAMMOGRAM 09/16/2026 09/16/2024, 11/07, 11/29/2021, Additional history exists Adult Td,Tdap Booster 02/22/2031 02/22/2021 COLONOSCOPY 09/07/2031 09/07/2021 COLORECTAL CANCER SCREENING 09/07/2031 RSV VACCINE (1 - 1-dose 75+ series) 2035 HEPATITIS A VACCINES Aged Out No long er eligible based on patient's age to complete this topic HIB VACCINES Aged Out No longer eligi ble based on patient's age to complete this topic MENINGOCOCCAL VACCINES (ACWY) Aged Out No longer eligible based on patient's age to complete this topic MENINGOCOCCAL VACCINES (B) Aged Out N o longer eligible based on patient's age to complete this topic Medical Devices Not on file Procedures Procedure Name Priority Date/Time Associated Diagnosis Comments BI MAMMOGRAM SCREENING WITH TOMOSYNTHESIS WITH CAD (BILATERAL) Routine 09/16/2024 10:58 AM EST Breast screening ENDOSCOPY, COLON 09/07/2021 7:23 AM EDT from Last 3 Months or Most Recently Relevant to Health Maintenance Results * BI MAMMOGRAM SCREENING WITH TOMOSYNTHESIS WITH CAD (BILATERAL) (09/16/2024 10:58 AM EST) Anatomical Region Laterality Modality Breast Left, Breast Right, Breast Bilateral Bila teral Mammography 09/16/2024 1:52 PM EST Impressions 09/16/2024 1:57 PM EST No mammographic evidence of malignancy in either breast. Annual screening mammography is recommended. BI-RADS 2 BENIGN The patient will be notified of the results and recommendations. Narrative 09/16/2024 1:57 PM EST BI MAMMOGRAM SCREENING WITH TOMOSYNTHESIS WITH CAD (BILATERAL) Additional patient information: Screening. COMPARISON: Comparison is made with relevant prior imaging. Breast composition: There are scattered areas of fibroglandular density. FINDINGS: No abnormal masses, suspicious calcifications, or other significant findings are identified mammographically in either breast. Stable coarse calcifications in the periareolar regions of each breast. Procedure Note Benedict Elizabeth MD - 09/16/2024 BI MAMMOGRAM SCREENING WITH TOMOSYNTHESIS WITH CAD (BILATERAL) Additional patient information: Screening. COMPARISON: Comparison is made with relevant prior imaging. Breast composition: There are scattered areas of fibroglandular density. FINDINGS: No abnormal masses, suspicious calcifications, or other significantfindings are identified mammographically in either breast. Stable coarsecalcifications in the periareolar regions of each breast. IMPRESSION: No mammographic evidence of malignancy in either breast. Annual screening mammography is recommended. BI-RADS 2 BENIGN The patient will be notified of the results and recommendations. us Artemio Martinez DO IMG MG EXAMS Final Result * ENDOSCOPY, COLON (09/07/2021 7:23 AM EDT) Narrative Transcriptions Lui Hinds MD - 09/07/2021 7:23 AM EDT Patient Name: Thelma Sd Attending MD:: LUI HINDS MD, Procedure Date: 09/07/2021 7:23 AM Date of : 1960 Age: 61 Admit Type: Outpatient Gender: Female Room: [place] [address] Referring MD: ARTEMIO MARTINEZ DO Exam Type: Colonoscopy Indications: High risk colon cancer surveillance: Personalhistory of colonic polyps Medications: Monitored Anesthesia Care Procedure: Informed consent was obtained from the patient after discussion of the indications, limitations, alternatives, benefits, and risks of the procedure. Risks specifically discussed include but are not limited to medication reactions, missed lesions, bleeding, perforation, or the need for emergentsurgery. Throughout the procedure, the patient's bloodpressure, pulse, end-tidal CO2, and oxygen saturations were monitored continuously. The Olympus adult variable colonoscope [id number] #2was introduced through the anus and advanced to thececum, identified by appendiceal orifice and ileocecalvalve. The colonoscopy was performed without difficulty.The patient tolerated the procedure well. The quality of the bowel preparation was excellent. The quality ofthe bowel preparation was evaluated using the BBPS([place] Bowel Preparation Scale) with scores of: Right Colon= 3, Transverse Colon = 3 and Left Colon = 3 (entire mucosa seen well with no residual staining, small fragments of stool or opaque liquid). The total BBPS score equals 9. Complications: No immediate complications. Estimated blood loss:None. Findings: The perianal and digital rectal examinations were normal. Internal hemorrhoids were found during retroflexion. The hemorrhoids were mild. The exam was otherwise normal throughout theexamined colon. Impression: - Internal hemorrhoids. - No specimens collected. Recommendation: - Discharge patient to home. - Repeat colonoscopy in 5 years for surveillance. LUI HINDS MD, 09/07/2021 8:21:50 AM This report has been signed electronically. Number of Addenda: 0 Note Initiated On: 09/07/2021 7:23 AM Procedure Code(s): --- Professional --- 02541, Colonoscopy, flexible; diagnostic, including collection of specimen(s) by brushing or washing, when performed (separateprocedure) --- Technical --- 89338, Colonoscopy, flexible; diagnostic, including collection of specimen(s) by brushing or washing, when performed (separateprocedure) Diagnosis Code(s): --- Professional --- Z86.010, Personal history of colonic polyps K64.8, Other hemorrhoids --- Technical --- Z86.010, Personal history of colonic polyps K64.8, Other hemorrhoids CPT copyright 2018 [employer]. All rights reserved. The codes documented in this report are preliminary and upon senior unix administrator reviewmay be revised to meet current compliance requirements. Procedure Date: 09/07/2021 7:23:57 AM [address] [place] [address] us Artemio Martinez DO GI PROCEDURE ORDERABLES Final Re sult from Last 3 Months or Most Recently Relevant to Health Maintenance Insurance [facility] MEDICARE PART A & B [facility] EXTENSION MEDICARE SUPPLEMENT [facility] POS MEDICARE PART A & B [facility] EXTENSION MEDICARE SUPPLEMENT [facility] POS [facility] POS [facility] POS MEDICARE PART A & [place] [id number] [facility] EXTENSION MEDICARE SUPPLEMENT [facility] EX[facility] POS [facility] EX[facility] POS MEDICARE PART A & [place] [id number] [facility] EXTENSION MEDICARE SUPPLEMENT [facility] EX[facility] POS MEDICARE PART A & B [employer] EXTENSION MEDICARE SUPPLEMENT [facility] EX[facility] POS MEDICARE PART A & B [facility] EXTENSION MEDICARE SUPPLEMENT Care Teams Knot Bumper Relationship Specialty Start Date End Date Artemio Martinez DO PCP - General Internal Medicine 06/04/20 Artemio Martinez DO 06/04/20 Artemio Martinez DO [email or web address] Historical LMR Provider 08/24/17 Camila Garcia MD [address] [place] [address] Orthopedics & Sports Medicine, [facility] [place] [address] [email or web address] Historical LMR Provider 08/24/17 Additional Source Comments The information contained in this document represents components of the legal health record. It is not the complete legal health record.[facility]
--- OUTSIDE RECORDS SUMMARY | 2025-07-28 07:56 | XMS_ITS | Encounter Summary ---
Author Organization [facility] Address [address] [place] [address] [place] [address] Phone Care Team Providers Care Bake Room Worker Name Role Phone Darnell Cheney DO Primary Care Provider [phone] Shravan, Darnell Pearson DO Primary Care Provider [phone] Shravan, Darnell Pearson DO Unavailable Shravan, Darnell Pearson DO Unavailable Mehul Keita MD Unavailable [phone] Camila Garcia MD Unavailable [phone] Shravan, Darnell Pearson DO Unavailable Shravan, Darnell Michel DO Unavailable Reason for Referral * MRI/CAT Scan - Closed Specialty Diagnoses / Procedures Referred By Contmichael t Referred To Contact Radiology Diagnoses Complete tear of left rotator cuff, unspecified whether traumatic Procedures MRI Shoulder (Left) Darnell Cheney DO Phone: tel: fax: mailto: Referral ID Status Reason Start Date Expiration Date Visits Re quested Visits Authorized [id number] Closed 08/08/2019 10/07/2019 1 1 Encounter Details Date Type Department Care Team ([facility] st Contact Info) Description 08/07/2019 Transcribe Orders [facility] Department [address] [place] [address] Darnell Cheney DO [address] [facility] [place] [address] [email or web address] Complete tear of left rotator cuff, unspecified whether traumatic (Primary Dx) Social History Tobacco Use Types [...] st Contact Info) Description 06/18/2025 Procedure Pass [address] [address] 02/03/2026 11:00 AM EDT Appointment [address] [address] Darnell Cheney, [address] [facility] [place] [address] [email or web address] 02/13/2026 8:00 AM EDT Telemedicine [facility] Department of Neurology [address] [place] [address], 8th Floor, [address] [place] [address] Kirk Catalan MD [address] [place] [address] [address] [place] [address] [email or web address] documented as of this encounter Results * MRI SHOULDER WITHOUT CONTRAST (LEFT) (08/19/2019 5:28 PM EDT) Anatomical Region Laterality Modality Shoulder Left Magnetic Resonan ce 08/19/2019 6:18 PM EDT Impressions 08/19/2019 6:28 PM EDT 1. No evidence of a rotator cuff tear nor significant cuff tendinopathy. 2. Questionable minor changes of bursitis. 3. Questionable tendinitis proximal LHBT POS - [id number] Narrative 08/19/2019 6:28 PM EDT TECHNIQUE: 1.5 Alysa high-field MRI scanner. Axial T1 and proton density with fat suppression, oblique coronal proton density with fat suppression and T2 with fat suppression, oblique sagittal T1 and T2 with fat suppression sequences . No comparison FINDINGS: No rotator cuff tear or significant tendinopathy. There is a trace of fluid in the SASD bursa which could indicate bursitis. There is mildly increased signal in the proximal long head of the biceps tendon suggesting tendinopathy but overall the tendon and its anchor is seen intact and nondisplaced. The type II acromion is not downward turned nor is a subacromial tip spur are apparent however there are small subchondral cysts in the posterolateral humeral head which may indicate chronic impingement. No significant arthritic changes nor any marrow abnormalities worrisome for bony trauma, tumor or infection. No labral tear is evident. Procedure Note Kasi Box MD - 08/19/2019 TECHNIQUE: 1.5 Alysa high-field MRI scanner. Axial T1 and proton density with fat suppression, oblique coronal protondensity with fat suppression and T2 with fat suppression, oblique sagittalT1 and T2 with fat suppression sequences . No comparison FINDINGS: No rotator cuff tear or significant tendinopathy. There is a trace of fluid in the SASD bursa which could indicatebursitis. There is mildly increased signal in the proximal long head of the bicepstendon suggesting tendinopathy but overall the tendon and its anchor isseen intact and nondisplaced. The type II acromion is not downward turned nor is a subacromial tip spurare apparent however there are small subchondral cysts in theposterolateral humeral head which may indicate chronic impingement. No significant arthritic changes nor any marrow abnormalities worrisomefor bony trauma, tumor or infection. No labral tear is evident. IMPRESSION: 1. No evidence of a rotator cuff tear nor significant cuff tendinopathy. 2. Questionable minor changes of bursitis. 3. Questionable tendinitis proximal LHBT POS - [id number] us Darnell HASTINGS MR EXTREMITY Final Result documented in this encounter Visit Diagnoses Diagnosis Complete tear of left rotator cuff, unspecified whether traumatic- Primary Complete tear of left rotator cuff, unspecified whether traumatic Visit for screening mammogram documented in this encounter Additional Health Concerns Infection Onset Date Last Indicated Resolved Time CoV-Risk 03/28/2022 03/28/2022 04/08/2022 1:24 AM EDT documented as of this encounter Care Teams Bake Room Worker Relationship Specialty Start Date End Date Darnell Cheney DO PCP - General 08/22/17 06/03/20 Darnell Cheney DO [email or web address] PCP - General Internal Medicine 06/04/20 Darnell Cheney DO [email or web address] 06/04/20 Darnell Cheney DO Historical LMR Provider 08/24/17 Mehul Keita MD [address] [place] [address] Historical LMR Provider 08/24/17 Camila Garcia MD [address] [place] [address] Orthopedics & Sports Medicine, [place] [address] Historical LMR Provider 08/24/17 Darnell Cheney DO [address] [place] [address] Insurance Assigned Provider 03/11/20 09/16/23 Darnell Cheney DO [address] [place] [address] [email or web address] Insurance Assigned Provider 02/10/24 07/12/25 documented as of this encounter Additional Source Comments The information contained in this document represents components of the legal health record. It is not the complete legal health record.[facility]
--- OUTSIDE RECORDS SUMMARY | 2025-07-28 07:57 | XMS_ITS | Encounter Summary ---
Author Organization [facility] Address [facility]ly [facility] [employer] [facility] [address] [place] [address] Phone Care Team Providers Care Counter Caser Name Role Phone Bigda, Darnell A DO Primary Care Provider [phone] Bigda, Darnell A DO Primary Care Provider [phone] Bigda, Darnell A DO Unavailable Bigda, Darnell A DO Unavailable Mehul Keita MD Unavailable Camila Garcia MD Unavailable [phone] Bigda, Darnell A DO Unavailable Bigda, Darnell A DO Unavailable Encounter Details Date Type Department Care Team (Late st Contact Info) Description 11/07/2017 Ancillary Orders [facility] [address] [place] [address] System, Provider Not In, [place] [address] Social History Tobacco Use Types Packs/Day Years [...] st Contact Info) Description 06/18/2025 Procedure Pass [facility], [address] [address] 02/03/2026 11:00 AM EDT Appointment [address] [address] Darnell Cheney DO [address] [facility] [place] [address] 02/13/2026 8:00 AM EDT Telemedicine [facility] Department of Neurology [address] [place] [address], 8th Floor, [address] [place] [address] Kirk Catalan MD [address] [place] [address] [address] [place] [address] [email or web address] documented as of this encounter Results [...] documented as of this encounter Care Teams Counter Caser Relationship Specialty Start Date End Date Darnell Cheney DO PCP - General 08/22/17 06/03/20 Darnell Cheney DO PCP - General Internal Medicine 06/04/20 Darnell Cheney DO 06/04/20 Darnell Cheney DO Historical LMR Provider 08/24/17 Mehul Keita MD [address] [place] [address] Historical LMR Provider 08/24/17 Camila Garcia MD [address] [place] [address] Orthopedics & Sports Medicine, [place] [address] Historical LMR Provider 08/24/17 Darnell Cheney DO [address] [place] [address] Insurance Assigned Provider 03/11/20 09/16/23 Darnell Cheney DO [address] [place] [address] Insurance Assigned Provider 02/10/24 07/12/25 documented as of this encounter Additional Source Comments The information contained in this document represents components of the legal health record. It is not the complete legal health record.[facility]
--- OUTSIDE RECORDS SUMMARY | 2025-07-28 07:57 | XMS_ITS | Encounter Summary ---
Author Organization [facility] Address [address] [facility] [address] [place] [address] Phone Care Team Providers Care Staff Auditor Name Role Phone Darnell Cheney DO Primary Care Provider [phone] Bigda, Darnell A DO Unavailable Bigda, Darnell A DO Unavailable Camila Garcia MD Unavailable Bigda, Darnell A DO Unavailable Bigda, Darnell A DO Unavailable Encounter Details Date Type Department Care Team (Late st Contact Info) Description 09/06/2022 Transcribe Orders Virtual Department [address] [place] [address] [place] Darnell Pearson, DO [address] [facility] [place] [address] [place] [address] [email or web address] Breast screening (Primary Dx) Social History Tobacco Use Types [...] st Contact Info) Description 06/18/2025 Procedure Pass [address] [address] 02/03/2026 11:00 AM EDT Appointment [address] [address] Darnell Cheney DO [address] [facility] [place] [address] [place] [address] [email or web address] 02/13/2026 8:00 AM EDT Telemedicine [facility] Department of Neurology [address] [place] [address], 8th Floor, [address] [place] [address] Kirk Catalan MD [address] [place] [address] [address] [place] [address] [email or web address] documented as of this encounter Results * BI MAMMOGRAM SCREENING WITH TOMOSYNTHESIS WITH CAD (BILATERAL) (12/01/2022 9:42 AM EST) Anatomical Region Laterality Modality Breast Left, Breast Right, Breast Bilateral Bila teral Mammography 12/06/2022 4:06 PM EST Impressions 12/06/2022 4:10 PM EST BILATERAL BREASTS: Negative, no specific mammographic evidence of malignancy. Normal interval follow-up is recommended in 12 months. BI-RADS: BI-RADS CATEGORY: 1 - Negative. DENSITY: There are scattered fibroglandular densities. Narrative 12/06/2022 4:10 PM EST STUDY: BI MAMMOGRAM SCREENING WITH TOMOSYNTHESIS WITH CAD (BILATERAL) TECHNIQUE: Bilateral full-field digital screening mammography is obtained and read in conjunction with computer-aided detection. Tomosynthesis as well as 2-D C view imaging were obtained. COMPARISON: Comparison made to multiple prior, most recent November 29, 2021, and most remote October 26, 2017. BREAST COMPOSITION: There are scattered areas of fibroglandular density BILATERAL BREASTS: No significant masses, suspicious calcifications or other abnormalities are seen in either breast. Procedure Note Nadeem Lofton MD - 12/06/2022 STUDY: BI MAMMOGRAM SCREENING WITH TOMOSYNTHESIS WITH CAD (BILATERAL) TECHNIQUE: Bilateral full-field digital screening mammography is obtainedand read in conjunction with computer-aided detection. Tomosynthesis aswell as 2-D C view imaging were obtained. COMPARISON: Comparison made to multiple prior, most recent November, and most remote October 26, 2017. BREAST COMPOSITION: There are scattered areas of fibroglandulardensity BILATERAL BREASTS: No significant masses, suspicious calcifications orother abnormalities are seen in either breast. IMPRESSION: BILATERAL BREASTS: Negative, no specific mammographic evidence ofmalignancy. Normal interval follow-up is recommended in 12 months. BI-RADS: BI-RADS CATEGORY: 1 - Negative. DENSITY: There are scattered fibroglandular densities. Darnell Cheney DO IMG MG EXAMS Final Result documented in this encounter Visit Diagnoses Diagnosis Breast screening- Primary Breast screening, unspecified Breast screening Breast screening, unspecified Visit for screening mammogram documented in this encounter Care Teams Staff Auditor Relationship Specialty Start Date End Date Darnell Cheney DO PCP - General Internal Medicine 06/04/20 Darnell Cheney DO 06/04/20 Darnell Cheney DO Historical LMR Provider 08/24/17 Camila Garcia MD [address] [place] [address] [facility], [place] [address] Historical LMR Provider 08/24/17 Darnell Cheney DO [address] [place] [address] Insurance Assigned Provider 03/11/20 09/16/23 Darnell Cheney DO 179 [place] [address] Insurance Assigned Provider 02/10/24 07/12/25 documented as of this encounter Additional Source Comments The information contained in this document represents components of the legal health record. It is not the complete legal health record.[facility]
--- OUTSIDE RECORDS SUMMARY | 2025-07-28 07:57 | XMS_ITS | Encounter Summary ---
Author Organization [facility] Address [facility] access hospital [facility] [address] [place] [address] Phone Care Team Providers Care Margin Trimmer Name Role Phone [place], Darnell A DO Primary Care Provider [phone] Bigda, Darnell A DO Unavailable Bigda, Darnell A DO Unavailable Camila Garcia MD Unavailable [phone] Bigda, Darnell A DO Unavailable Bigda, Darnell A DO Unavailable Encounter Details Date Type Department Care Team (Late st Contact Info) Description 09/06/2022 Procedure Pass [address] [address] Social History Tobacco Use Types Packs/Day Years [...] st Contact Info) Description 06/18/2025 Procedure Pass [address] [address] 02/03/2026 11:00 AM EDT Appointment [facility] [address] [place] [address] Darnell Cheney DO [address] [facility] [address] [place] [address] 02/13/2026 8:00 AM EDT Telemedicine [facility] Department of Neurology [address] [facility], 8th Floor, [address] [place] [address] Kirk Catalan MD 55 [facility] [address] [place] [address] [email or web address] documented as of this encounter Visit Diagnoses Not on filedocumented in this encounter Care Teams Margin Trimmer Relationship Specialty Start Date End Date Darnell Cheney DO PCP - General Internal Medicine 06/04/20 Darnell Cheney DO 06/04/20 Darnell Cheney DO Historical LMR Provider 08/24/17 Camila Garcia MD [address] [place] [address] Orthopedics & Sports Medicine, [facility] [place] [address] [email or web address] Historical LMR Provider 08/24/17 Darnell Cheney DO [address] [facility] [place] [address] [email or web address] Insurance Assigned Provider 03/11/20 09/16/23 Darnell Cheney DO 179 [place] [address] [email or web address] Insurance Assigned Provider 02/10/24 07/12/25 documented as of this encounter Additional Source Comments The information contained in this document represents components of the legal health record. It is not the complete legal health record.[facility]
--- OUTSIDE RECORDS SUMMARY | 2025-07-28 07:57 | XMS_ITS | Encounter Summary ---
Author Organization [facility] Address [facility] [employer] [facility] [address] [place] [address] Phone Care Team Providers Care [employer] Hvac R Instructor Name Role Phone Shravan, Darnell Michel DO Primary Care Provider [phone] Bigda, Darnell A DO Primary Care Provider [phone] Bigda, Darnell A DO Unavailable Bigda, Darnell A DO Unavailable Mehul Keita MD Unavailable Camila Garcia MD Unavailable [phone] Bigda, Darnell A DO Unavailable Bigda, Darnell A DO Unavailable Encounter Details Date Type Department Care Team (Late st Contact Info) Description 11/15/2018 Ancillary Orders Virtual Department [address] [place] [address] Shravan, Darnell Pearson, DO [address] [facility] [place] [address] Breast screening Social History Tobacco Use Types Packs/Day Years Used Date Smoking Tobacco: Former Smokeless Tobacco: Never Alcohol Use Standard Drinks/Week [...] st Contact Info) Description 06/18/2025 Procedure Pass [address] [address] 02/03/2026 11:00 AM EDT Appointment [address] [address] Darnell Cheney, 179 [facility] [place] [address] [email or web address] 02/13/2026 8:00 AM EDT Telemedicine [facility] Department of Neurology [address] [place] [address], 8th Floor, [address] [place] [address] Kirk Catalan MD [address] [place], [place] [address] [place] [address] [email or web address] documented as of this encounter Results * BI MAMMOGRAM SCREENING WITH TOMOSYNTHESIS WITH CAD (BILATERAL) (11/21/2018 11:32 AM EST) Anatomical Region Laterality Modality Breast Left, Breast Right, Breast Bilateral Bila teral Mammography 11/21/2018 3:31 PM EST Impressions 11/21/2018 3:38 PM EST No mammographic signs of malignancy. Annual screening is recommended. BI-RADS CATEGORY: 1 - Negative. DENSITY: There are scattered fibroglandular densities. POS - CDHMAMA Narrative 11/21/2018 3:38 PM EST Bilateral mammography is performed in conjunction with computed aided detection. 3-D tomography along with 2-D C view imaging was also performed. Comparison made to previous dated as far back as 05/15/2012 and as recent as 10/26/2017. No suspicious masses, areas of architectural distortion or suspicious microcalcifications. Procedure Note Benedict Otero MD - 11/21/2018 Bilateral mammography is performed in conjunction with computed aideddetection. 3-D tomography along with 2-D C view imaging was alsoperformed. Comparison made to previous dated as far back as 05/15/2012 andas recent as 10/26/2017. No suspicious masses, areas of architectural distortion or suspiciousmicrocalcifications. IMPRESSION: No mammographic signs of malignancy. Annual screening is recommended. BI-RADS CATEGORY: 1 - Negative. DENSITY: There are scattered fibroglandular densities. POS - CDHMAMA us Darnell Cheney DO IMG MG EXAMS Final Result documented in this encounter Visit Diagnoses Diagnosis Breast screening Breast screening, unspecified Breast screening Breast screening, unspecified Visit for screening mammogram documented in this encounter Additional Health Concerns Infection Onset Date Last Indicated Resolved Time CoV-Risk 03/28/2022 03/28/2022 04/08/2022 1:24 AM EDT documented as of this encounter Care Teams [employer] Hvac [employer] Instructor Relationship Specialty Start Date End Date Darnell Cheney DO PCP - General 08/22/17 06/03/20 Darnell Cheney DO PCP - General Internal Medicine 06/04/20 Darnell Cheney DO 06/04/20 Darnell Cheney DO Historical LMR Provider 08/24/17 Mehul Keita MD [address] [place] [address] Historical LMR Provider 08/24/17 Camila Garcia MD [address] [place] [address] Orthopedics & Sports Medicine, [facility] [place] [address] [email or web address] Historical LMR Provider 08/24/17 Darnell Cheney DO [address] [place] [address] Insurance Assigned Provider 03/11/20 09/16/23 Darnell Cheney DO [address] [place] [address] [email or web address] Insurance Assigned Provider 02/10/24 07/12/25 documented as of this encounter Additional Source Comments The information contained in this document represents components of the legal health record. It is not the complete legal health record.[facility]
[2025-07-28 08:13] VITALS: BP 112/69; PULSE 59; RESP 16; BMI 31.8
--- NOTE | 2025-07-28 08:13 | MHC.OFFVIS ---
Vital Signs 07/28/25 08:13 Height 5 ft 6 in Weight 197 lb BMI 31.8 BP 112/69 Blood Pressure Location Rt brachial Position Sitting Respiration 16 Pulse 59 Intake Visit Reasons: ENP: Migraines Ferruler Required: No Allergies No Known Allergies Allergy (Verified 07/28/25 08:12) HPI Comments Details: Thelma is a 65-year-old female patient with a past medical history of anxiety, depression, obesity, and GERD presenting today for a new patient headache evaluation. She tells me that her headaches started approximately 1 year ago with gradual onset and have continued on a daily basis. Everyday, she has some level of pain generally at the level of a 4 or a 6/10. Her pain is localized to the frontal area described as a band on the top of her head. She has potentially some ongoing light sensitivity though she has no other migrainous features such as nausea, dizziness, vision changes, or sound sensitivity. She does not have any temporal tenderness. She is however tender to the frontal areas of her scalp. Her pain is described as an aching sensation. Her pain is not worse in any particular position. She can not identify any triggers or warning signs for headaches. She denies any tinnitus. She does have some ongoing chronic vision trouble including early stages of cataracts and possibility for macular degeneration. She does follow an eye doctor. Patient was recently diagnosed with lichen planopilaris. She is being followed by Dermatology for this. Family history: Sister with a history of migraine Father with a history of malignant brain tumor ( at 53) Social: Sleep: Sleeps well with trazodone. Sleeps well and feels rested with trzodone. In the past was 300lbs and had to use ETOH: Scoial and rare Tobaccco: Smokes an e-cigarette rae Substance use: None Prior medication trials: None Prior workup: Brain MRI with without contrast July [address] [facility]. Report and images reviewed with attending physician. There are some bright T2 FLAIR in the brain parenchyma including the area of the jaycee. [facility] Medical History (Updated 07/28/25 @ 09:11 by Silvia Holder CNP) Migraine Depressive disorder Anxiety Morbid obesity Family History (Updated 07/22/25 @ 08:26 by Vy Herrera [facility]) Son Harmful pattern of use of alcohol Substance abuse Mother Hypertension Arthritis Maternal Grandfather Chronic obstructive pulmonary disease Sister Migraine Disorder of thyroid gland Review of Systems Const All systems reviewed & are unremarkable except as noted in HPI and below Physical Exam Vital Signs: Last Vital Signs Pulse 59 07/28/25 08:13 Resp 16 07/28/25 08:13 BP 112/69 07/28/25 08:13 BMI result Body Mass Index 31.8 Const General: cooperative, healthy appearing, comfortable and no acute distress Nutritional Appearance: well nourished Orientation/consciousness: patient oriented x3 Limitations: no limitations HEENT Head: Yes normal to inspection and Yes normocephalic Eyes General: appearance normal, both eyes and all related structures Visual Stephenson: normal visual stephenson by confrontation Alignment and Position: alignment normal Periorbital: periorbital findings normal Eyelids: Yes eyelids normal Conjunctivae: conjunctivae normal Sclerae: sclerae normal Back/Spine/Pelvis Other: Bilateral upper trapezius trigger points Neuro General: patient oriented x3 and deep tendon reflexes 2+ bilaterally Cranial nerves: Yes CN's II-XII intact bilaterally and Yes Facial sensation intact/muscles of mastication intact Cognition (Neuro): normal cognition Gait exam (Neuro): Normal gait present Motor exam (neuro): 5/5 motor strength present throughout and no tremor noted Sensory Exam: double simultaneous stimulation for sensation normal Romberg Test: Negative Pupils: Normal pupillary reactivity/response: bilateral Psych Appearance: grossly normal Mental Status: mental status grossly normal Speech and movement: Normal speech and movement present and Clear speech present Affect: normal affect Attitude: cooperative Thought process: Normal thought process present Thought content: Normal thought content present Insight: Good insight present (Psych) Judgement: Good judgement present (Psych) Assessment & Plan Assessment & Plan (1) Chronic daily headache: Code(s): R51.9 - Headache, unspecified Category: Medical Plan Thelma is a 65-year-old female patient with a past medical history of anxiety, depression, obesity, and GERD presenting today for a new patient headache evaluation. Her history, exam, and recent imaging were reassuring. Headache is most likely characteristic of chronic tension-type headache versus nummular type headache. We will start her on low-dose gabapentin for pain management and also refer her to physical therapy for myofascial release, therapeutic exercise, and massage. I will see her back in 2 months. -low-dose gabapentin (100 mg twice daily) -trial of physical therapy for myofascial release -follow-up in 2 months Coding Level of Care Code New Pt Level 4 (52408) Diagnoses Chronic daily headache R51.9
== END 2025-07-28 09:04 | disposition home or self-care (01) ==
LOC: HO.HSM 07:53
PROVIDERS: PCP Physician Assistant; Visit Provider Nurse Practitioner
DX: R51.9 Headache, unspecified (principal)
CPT/HCPCS: 99204

== ENCOUNTER → 2025-07-28 07:53 | Outpatient (BNVA) | payer MEDICARE, OTHER, SELFPAY | PROVIDERS: PCP Physician Assistant; Visit Provider Nurse Practitioner | DX: R51.9 Headache, unspecified (principal) | CPT/HCPCS: 99202 ==

== ENCOUNTER 2025-09-22 08:29 | Outpatient (AMB) | payer MEDICARE, OTHER, SELFPAY ==
[2025-09-22 08:46] VITALS: BP 118/70; PULSE 52; RESP 16; O2SAT 99; BMI 31.8
--- NOTE | 2025-09-22 08:46 | A.OFFVIS_ITS ---
Vital Signs 09/22/25 08:46 Height 5 ft 6 in Weight 197 lb BMI 31.8 BP 118/70 Blood Pressure Location Rt brachial Respiration 16 Pulse 52 Pulse Source Pulse Oximeter Pulse Oximetry (%) 99 Oxygen Delivery Method Room Air Intake Visit Reasons: 2m Internal Control Specialist Required: No Allergies No Known Allergies Allergy (Verified 09/22/25 08:47) HPI Comments Details: Thelma is a 65-year-old female patient with a past medical history of anxiety, depression, obesity, and GERD presenting today for a follow-up headache visit. At the time of our last visit she explained she was having headaches on a daily basis generally at a 4 or 6/10. Her pain was localized in the frontal area described as a band across the top of her head with potentially some ongoing light sensitivity but without any migrainous features otherwise. She denied any temporal tenderness though did note some areas over the top of her scalp that were slightly tender. Pain is described as an aching sensation and not worse in any particular position. She was not able to identify any triggers. She denied any tinnitus. She did note some vision changes that were chronic and she had noted she was in the early stages of cataracts. She tells me that her headaches started approximately 1 year ago with gradual onset and have continued on a daily basis. Everyday, she has some level of pain generally at the level of a 4 or a 6/10. Her pain is localized to the frontal area described as a band on the top of her head. She has potentially some ongoing light sensitivity though she has no other migrainous features such as nausea, dizziness, vision changes, or sound sensitivity. She does not have any temporal tenderness. She is however tender to the frontal areas of her scalp. Her pain is described as an aching sensation. Her pain is not worse in any particular position. She can not identify any triggers or warning signs for headaches. She denies any tinnitus. She does have some ongoing chronic vision trouble including early stages of cataracts and possibility for macular degeneration. She does follow an eye doctor. Patient was recently diagnosed with lichen planopilaris. She is being followed by Dermatology for this. She tells me today that since starting on the gabapentin as prescribed at last visit she has had some improvement in her headaches. She has also made some changes to her caffeine intake and has been cutting down to decaf going from approximately 3 cups of coffee daily. She is now having approximately 2 headaches per week lasting a few hours in the day. She is very happy with the outcome of the gabapentin. She did not however start any physical therapy for her headaches as she was told that [facility] does not take outside referrals. Prior medication trials: Gabapentin 100 mg nightly some benefit Prior workup: Brain MRI with without contrast July 2024 performed at [facility]. Report and images reviewed with attending physician. There are some bright T2 FLAIR in the brain parenchyma including the area of the jaycee. [facility] Medical History (Updated 09/22/25 @ 09:09 by Silvia Holder CNP) Migraine Depressive disorder Anxiety Morbid obesity Family History (Updated 07/22/25 @ 08:26 by Vy Herrera [facility]) Son Harmful pattern of use of alcohol Substance abuse Mother Hypertension Arthritis Maternal Grandfather Chronic obstructive pulmonary disease Sister Migraine Disorder of thyroid gland Review of Systems Const All systems reviewed & are unremarkable except as noted in HPI and below Physical Exam Vital Signs: Last Vital Signs Pulse 52 09/22/25 08:46 Resp 16 09/22/25 08:46 BP 118/70 09/22/25 08:46 Pulse Ox 99 09/22/25 08:46 Oxygen Delivery Method Room Air 09/22/25 08:46 BMI result Body Mass Index 31.8 Const General: cooperative, healthy appearing, comfortable and no acute distress Nutritional Appearance: well nourished Orientation/consciousness: patient oriented x3 Limitations: no limitations HEENT Head: Yes normal to inspection and Yes normocephalic Eyes General: appearance normal, both eyes and all related structures Visual Stephenson: normal visual stephenson by confrontation Alignment and Position: alignment normal Periorbital: periorbital findings normal Eyelids: Yes eyelids normal Conjunctivae: conjunctivae normal Sclerae: sclerae normal Neuro General: patient oriented x3 Cranial nerves: Yes CN's II-XII intact bilaterally and Yes Facial sensation intact/muscles of mastication intact Cognition (Neuro): normal cognition Gait exam (Neuro): Normal gait present Motor exam (neuro): no tremor noted Sensory Exam: double simultaneous stimulation for sensation normal Romberg Test: Negative Pupils: Normal pupillary reactivity/response: bilateral Psych Appearance: grossly normal Mental Status: mental status grossly normal Speech and movement: Normal speech and movement present and Clear speech present Affect: normal affect Attitude: cooperative Thought process: Normal thought process present Thought content: Normal thought content present Insight: Good insight present (Psych) Judgement: Good judgement present (Psych) Assessment & Plan Assessment & Plan (1) Chronic daily headache: Code(s): R51.9 - Headache, unspecified Category: Medical (2) Trigger point of shoulder region: Code(s): M25.519 - Pain in unspecified shoulder Category: Medical (3) Tension type headache: Code(s): G44.209 - Tension-type headache, unspecified, not intractable Category: Medical Plan Thelma is a 65-year-old female patient with a past medical history of anxiety, depression, obesity, and GERD presenting today for a follow up visit. Her history, exam, and recent imaging were reassuring at the time of her 1st visit and it was presumed that she had possible tension component given the [id number] pain severity, location, and lack of migrainous features. We started low-dose gabapentin at last visit with the intention of twice daily however she has been seeing some benefit with only taking it once at night. She has not yet started physical therapy because there was complications with the referral. She has also made some changes to her caffeine intake which has been beneficial. We will continue her regimen for now and have her start physical therapy with new referral sent to [facility]. -continue gabapentin 100 mg at bedtime -trial of physical therapy for myofascial release-we will send new order to [facility] -continue reduction of caffeine intake -continue plan with eye doctor for new glasses -follow-up in 6 months Orders: Orders PT Evaluation and Treatment Today G44.209 - Tension-type headache, unspecified, not intractable, M25.519 - Pain in unspecified shoulder, M79.18 - Myalgia, other site Coding Level of Care Code Est Pt Level 4 (02385) Diagnoses Chronic daily headache R51.9 Trigger point of shoulder region M25.519 Tension type headache G44.209
== END 2025-09-22 09:02 | disposition home or self-care (01) ==
LOC: HO.HSM 08:30
PROVIDERS: PCP Physician Assistant; Visit Provider Nurse Practitioner
DX: G44.209 Tension-type headache, unspecified, not intractable (principal); M25.519 Pain in unspecified shoulder
CPT/HCPCS: 99214

== ENCOUNTER → 2025-09-22 08:29 | Outpatient (BNVA) | payer MEDICARE, OTHER, SELFPAY | PROVIDERS: PCP Physician Assistant; Visit Provider Nurse Practitioner | DX: G44.209 Tension-type headache, unspecified, not intractable (principal); M79.18 Myalgia, other site | CPT/HCPCS: 99212 ==

== ENCOUNTER 2025-09-23 10:36 | Outpatient (REF) | payer MEDICARE, OTHER, SELFPAY ==
[2025-09-23 13:59] LABS: MANUAL DIFF FLAG NO
[2025-09-23 14:19] LABS: Cholesterol 182 mg/dL (<200); HDL Cholesterol 78 mg/dL (>40); Triglycerides 53 mg/dL (<150)
[2025-09-23 14:32] LABS: Hematocrit 40.6 % (37.0-47.0); Hemoglobin 13.0 g/dl (12.0-16.0); Imm Gran Abs Auto 0.00 X10*3/uL (0.00-0.03); Imm Gran Pct Auto 0.0 % (0.0-0.4); Lymphocytes Absolute Auto 1.4 X10*3/uL (1.2-4.9); Mean Corpuscular HGB Conc 32.0 g/dl (31.0-35.0); Mean Corpuscular Hemoglobin 30.6 pg (27.0-33.0); Mean Corpuscular Volume 95.5 fL (80.0-98.0); NRBC Abs Auto 0.000 X10*3/uL (0.0-0.012); NRBC Pct Auto 0.0 /100WBC (0.0-0.2); Platelet Count 194 X10*3/uL (160-400); Red Blood Count 4.25 X10*6/uL (4.20-5.50); White Blood Count 3.6 X10*3/uL (4.8-10.8)
== END 2025-09-23 10:37 | disposition home or self-care (01) ==
LOC: HO.MANLDS 10:36
PROVIDERS: Visit Provider Physician Assistant
DX: Z00.00 Encounter for general adult medical examination without abnormal findings (principal); Z13.6 Encounter for screening for cardiovascular disorders
CPT/HCPCS: 36415; 80061; 85025